=== PATIENT | female | born 1965 | race Caucasian/White ===

== ENCOUNTER 2018-01-22 15:13 | Emergency (ER) | payer OTHER ==
[~2018-01-22] VITALS: Ht 154.9 cm; Wt 76.7 kg
[~2018-01-22 15:13] MED LIST: AMLODIPINE10 MG PO; CLONIDINE0.2 MG PO; DIA5 PO
[2018-01-22 15:16] VITALS: Ht 154.9 cm; Wt 76.7 kg
[2018-01-22 16:43] LABS: BASOPHIL % 0.3 % (0-2); PLATELET COUNT 164 x10^3mcL (130-400)
[2018-01-22 16:59] LABS: ALBUMIN 3.4 g/dL (3.4-5.0); BILIRUBIN TOTAL 1.6 mg/dL (0.20-1.00); CALCIUM 9.3 mg/dL (8.5-10.1); CARBON DIOXIDE 34.4 mmol/L (21-32); POTASSIUM SERUM 3.8 mmol/L (3.5-5.1)
[2018-01-22 17:03] LABS: TOTAL PROTEIN, SERUM 8.5 g/dL (6.4-8.2)
[2018-01-22 17:05] LABS: CREATININE SERUM 5.4 mg/dL (0.6-1.0)
[2018-01-22 20:21] VITALS: BP 158/89
== END 2018-01-22 20:21 | disposition home or self-care (01) ==
LOC: ED 15:13
PROVIDERS: Emergency Medicine
DX: K29.70 Gastritis, unspecified, without bleeding (principal); K80.20 Calculus of gallbladder without cholecystitis without obstruction; E11.22 Type 2 diabetes mellitus with diabetic chronic kidney disease; I12.0 Hypertensive chronic kidney disease with stage 5 chronic kidney disease or end stage renal disease; N18.6 End stage renal disease; R94.5 Abnormal results of liver function studies; Z98.890 Other specified postprocedural states; Z88.1 Allergy status to other antibiotic agents
CPT/HCPCS: 36415; Q0092

== ENCOUNTER 2018-07-04 18:11 | Inpatient (IN) | payer OTHER ==
[~2018-07-04] VITALS: Ht 165.1 cm; Wt 63.1 kg
--- NOTE | 2018-07-04 18:39 | NUR ---
PT BROUGHT TO ED VIA BLS AMBULANCE FROM [facility] C/O RECTAL BLEEDING SINCE LAST NIGHT. PER EMT STAFF AT FACILITY REPORTED PT HAD 50CC BRIGHT RED BLOOD NOTED WHEN CHANGING DIAPER TODAY. PT ARRIVED TO ED A/O X4, ROMANSH SPEAKING, DIAPER IN PLACE FROM FACILITY, DRESSING IN PLACE TO RIGHT ABOVE THE KNEE AMPUTATION, DIALYSIS SHUNT TO LEFT UPPER ARM, NO ACUTE DISTRESS NOTED.
--- NOTE | 2018-07-04 18:57 | NUR ---
PT REPORTS RIGHT ABOVE KNEE AMPUTATION WAS DONE 3-4 WEEKS AGO AT [facility], SHE ALSO REPORTS SHE HAS HAD PRESSURE ULCER TO BUTTOCK SINCE APPROX SAME TIME. PT HAS DRESSING IN PLACE TO BUTTOCK AND APPROX 100CC BRIGHT RED BLOOD WITH CLOTS NOTED TO DIAPER. PT DENIES ANY HX OF RECTAL BLEEDING.
--- NOTE | 2018-07-04 19:07 | NUR ---
REPORT RECEIVED FROM ADELIA GOOD I WILL BE RESUMING CARE PF PT AT THIS TIME
--- NOTE | 2018-07-04 19:08 | NUR ---
PT IN POSITION OF COMFORT RESPS E/U CALL LIGHT WITHIN REACH
--- NOTE | 2018-07-04 19:15 | NUR ---
REPORT GIVEN TO GILLIAN GOOD.
[2018-07-04 19:42] LABS: BASOPHIL % 0.6 % (0-2); PLATELET COUNT 318 x10^3mcL (130-400); RED CELL DISTRIBUTION WIDTH 18.9 % (11.5-14.5)
--- NOTE | 2018-07-04 19:51 | NUR ---
PT NIECE TWIN AKILA [phone] CALLED ASKING FOR INFORMATION ON PT SHE WAS TOLD NO DETAILED INFORMATION CAN BE GIVEN ON THE PHONE AND BECAUSE SHE IS NOT LISTED ON THE NEXT OF KIN UNDER PCI
[2018-07-04 19:57] LABS: BILIRUBIN TOTAL 0.49 mg/dL (0.20-1.00); CARBON DIOXIDE 36.2 mmol/L (21-32); POTASSIUM SERUM 4.4 mmol/L (3.5-5.1); TOTAL PROTEIN, SERUM 7.2 g/dL (6.4-8.2)
[2018-07-04 19:59] LABS: ALBUMIN 2.5 g/dL (3.4-5.0); CREATININE SERUM 4.8 mg/dL (0.6-1.0)
--- NOTE | 2018-07-04 20:19 | NUR ---
SACRAL WOUND PHOTOGRAPH TAKEN AND PLACED IN PT CHART
[2018-07-04] MEDS ORDERED: NOR10T (20:26)
[2018-07-04 21:01] LABS: MAGNESIUM 2.2 mg/dL (1.8-2.4); PHOSPHOROUS 3.9 mg/dL (2.5-4.9)
--- NOTE | 2018-07-04 21:10 | NUR ---
RECEIVED PT FROM ED VIA [facility]ER[facility], CAME IN DUE TO RECTAL BLEED. AAOX4. DENIES HEADACHE/DIZZINESS. NO SOB NOTED, LUNG SOUNDS CTA, O2 SAT-95% ON 3LPM/NC. DENIES CHEST PAIN/PRESSURE, SR ON THE MONITOR. DENIES ABDOMINAL PAIN/NAUSEA/ VOMITING. BOWEL SOUNDS ACTIVE. W/ UNFORMED STOOL, DARK RED IN COLOR. ON HD EVERY MWF, ANURIC, W/ LEFT ARM AV SHUNT, BRUIT AND THRILL. W/ SURGICAL INCISION ON THE RLE, OPEN WOUND ON THE RIGHT ANTERIOR LEG, LEFT HEEL BLANCHABLE ERYTHEMA, DARK DISCOLORATION ON LLE, AND BLANCHABLE ERYTHEMA ON BILATERAL BUTTOCKS. LLE ELEVATED WITH PILLOW, TURNED AND REPOSITIONED ON THE LEFT SIDE. SIDE RAILS UPX2. CALL LIGHT ON REACH. AT BEDSIDE. ENDORSED TO PRIMARY NURSE WAYNE FOR CONTINUITY OF CARE
[2018-07-04 21:21] LABS: T3 TOTAL 0.66 ng/mL
[2018-07-04 21:22] LABS: FREE T4 1.1 ng/dL (0.76-1.46); FREE THYROXINE INDEX 2.4 ug/dL (1.4-4.5); T4(THYROXINE) 5.7 ug/dL (4.7-13.3)
[2018-07-04] MEDS ORDERED: LIPITOR40 MG PO (21:38)
[2018-07-04] MEDS ORDERED: GOOD SENSE ASPI81 M3 PO (21:38)
[2018-07-04] MEDS ORDERED: CATAPRES0.1 MG PO (21:39)
[2018-07-04 21:40] VITALS: BP 146/60
[2018-07-04] MEDS ORDERED: ATIVAN0.5 M1 PO (21:40)
[2018-07-04] MEDS ORDERED: ESCITALOPRAM20 M1 PO (21:40)
[2018-07-04] MEDS ORDERED: DOCUSATE NA250 MG PO (21:40)
[2018-07-04] MEDS ORDERED: NOR10T PO (21:41)
[2018-07-04] MEDS ORDERED: PROTONIX40 MG PO (21:41)
[2018-07-04] MEDS ORDERED: NIFEDIPINE30 MG PO (21:41)
[2018-07-04] MEDS ORDERED: RENVELA800 M1 PO (22:29)
[2018-07-04] MEDS ORDERED: LEVEMIR100 U/M1 SC (22:34)
--- NOTE | 2018-07-04 23:49 | NUR ---
PT REPORTED HAVING ABD PAIN MEDICATED PER EMAR. WILL CONTINUE TO MONITOR.
--- NOTE | 2018-07-04 23:53 | NUR ---
BOWEL PREP STARTED AT THIS TIME.
[2018-07-05] VITALS (8 sets, daily range): BP systolic 75–149; BP diastolic 35–69
--- NOTE | 2018-07-05 00:13 | NUR ---
PT ACTIVLY HAVING BRIGHT RED BLOOD WITH CLOTS. RECEIVED ORDER FOR H/H AT THIS TIME. DR THOMPSON MADE AWARE.
--- NOTE | 2018-07-05 00:27 | NUR ---
DR THOMPSON MADE AWARE OF BP 97/44 (62), HR 62. PROOF READER AT BEDSIDE TO DRAW CBC. PT DENIES DIZZINESS. NO RESP DISTRESS NOTED, PT ON NC 3L/MIN.
--- NOTE | 2018-07-05 00:31 | NUR ---
DR THOMPSON AT BEDSIDE TO ASSESS PT.
--- NOTE | 2018-07-05 00:39 | NUR ---
250 ML NS BOLUS ONGOING ORDERED FRO BP=97/44, MAP=62.
[2018-07-05 00:57] LABS: BASOPHIL % 0.7 % (0-2); PLATELET COUNT 241 x10^3mcL (130-400)
[2018-07-05 01:05] LABS: RED CELL DISTRIBUTION WIDTH 18.4 % (11.5-14.5)
--- NOTE | 2018-07-05 01:11 | NUR ---
DR THOMPSON MADE AWARE OF H&H RESULT 7. AND PT REFUSED TO DRINK SUPREP AT THIS TIME. AWAITING NEW ORDER.
--- NOTE | 2018-07-05 02:00 | NUR ---
PT HAD ANOTHER LARGE BRIGHT RED BLOODY LOOSE STOOL WTIH MANY LARGE CLOTS PRESENT. BP 75/35 HR 66. PT REPORTS FEELING DIZZY AND WEAK. DR THOMPSON MADE AWARE AND AT BEDSIDE TO ASSESS PT. ORDERS TO TRANSFER TO ICU AT THIS TIME.
--- NOTE | 2018-07-05 02:05 | NUR ---
PT ARRIVED TO ICU BED 9 ACCOMPANIED BY WAYNE, RN, MONICA RN. PT PLACED ON FULL IT APPLICATION SUPPORT ANALYST AND PULSE OXIMETRY. PT AOX4 ABLE TO RESPOND TO COMMANDS AND MAKE NEEDS KNOWN, WOLOF SPEAKING WITH KARISSA GOOD TO ASSIST IN TRANSLATION. PUPILS 4MM BRISK RESPONSE TO LIGHT BILATERALLY, PERRLA. NO FACIAL DROOP. TRACEHA MIDLINE, NO DRAINAGE TO EENT, NO EENT COMPLAINTS. LUNG SOUNDS CLEAR TO BUL, DIMINISHED BASES. CHEST RISE/FALL SYMMETRIC, E/U BREATHING. NO ACUTE RESP DISTRESS, DENIES SOB. PT ON 3L NC INTACT. S1/S2 SOUNDS HEARD, CHEST WALL STABLE, NO REPORT OF CHEST PAIN. SKIN COLOR APPEARS BENTLEY/PALE AT THIS TIME. PULSES WEAK TO BUE, LLE, AND PALPABLE, CAP REFILL <3 SEC. RIGHT LOWER EXTREMITY AMPUTATION NOTED WITH SURGICAL INCISION AND DRESSING CDI. NS INFUSING @ 250 ML/HR. NO EDEMA. JOINTS INTACT. SACRAL ULCER NOTED TO BUTTUCKS, OPTIFOAM CDI. PT ON TURN SCHEDULE Q2H. NO S/S OF N/V. ACTIVE BOWEL SOUNDS X4 QUADRANTS, ABD SOFT/ROUND, PT HAS NOTED BLOODY DARK RED STOOL WITH NOTED CLOTS LARGE AMOUNT, PROVIDED PT WITH PERICARE. PT HEMODIALYSIS PATIENT M,W,F AV SHUNT NOTED TO LUE, PT ANURIC. NO LABIAL EDEMA/DISCHARGE NOTED. IV TO RFA 20G, PORT PATENT, NO S/S OF INFILTRATION, DRESSING CDI. SKIN WARM/DRY TO TOUCH. PT CALM/COOPERATIVE WITH CARE.
--- NOTE | 2018-07-05 02:10 | NUR ---
TRANSFERED PT TO ICU, BREATHING EVEN AND UNLABORED WITH NO SOB NOTED ON NC 3L/MIN. REPORT GIVEN TO DEBORA GOOD, ALL QUESTIONS ADDRESSED.
--- NOTE | 2018-07-05 02:15 | NUR ---
LEVOPHED INITIATED AT 2 MCG/MIN, NIBP 67/38 (51).
--- NOTE | 2018-07-05 02:25 | NUR ---
CALLED AND LEFT A MESSAGE TO CRIS MUHAMMAD TO CALL BACK.
--- NOTE | 2018-07-05 02:25 | NUR ---
LEVOPHED INITIATED AT 2 MCG/MIN, NIBP 67/38 (51).
--- NOTE | 2018-07-05 02:30 | NUR ---
LEVOPHED TITRATED TO 4 MCG/MIN, NIBP 59/34 (50).
--- NOTE | 2018-07-05 02:34 | NUR ---
CALLED AND LEFT A MESSAGE TO CRIS MUHAMMAD TO CALL BACK REGARDING PT CHANGE OF CONDITION.
--- NOTE | 2018-07-05 03:00 | NUR ---
MAP=74, LEVOPHED TITRATED TO 2 MCG/MIN.
--- NOTE | 2018-07-05 03:15 | NUR ---
UNIT OF PRBC INITIATED AT THIS TIME, VERIFIED BY 2 RN'S, TEMP 97.1, PULSE 76, NIBP 109/58, RESP 12, PO2 95%. PT INSTRUCTED TO INFORM NURSING STAFF ON S/S OF BLOOD TRANSFUSIONS, PT VERBALIZES UNDERSTANDING.
--- NOTE | 2018-07-05 03:30 | NUR ---
15 MIN POST VITALS: 97.9 TEMP, PULSE 73, NIBP 100/49, RESP 14, O2 97%. PT SHOWS NO S/S OF BLOOD TRANSUFSION REACTION. BLOOD TRANFUSION TITRATED TO HIGHER RATE
--- NOTE | 2018-07-05 03:31 | NUR ---
NS BOLUS 1000ML FINISHED AT THIS TIME. NIBP 100/49 (72).
--- NOTE | 2018-07-05 03:40 | NUR ---
DR. THOMPSON AT BEDSIDE TO ASSESS PT. UPDATES PROVIDED, QUESTIONS ANSWERED.
--- NOTE | 2018-07-05 03:43 | NUR ---
BP 106/51 MAP 75, LEVOPHED TITRATED TO 1 MCG/MIN.
--- NOTE | 2018-07-05 04:00 | NUR ---
LEVOPHED TITRATED OFF AT THIS TIME. MAP=76.
--- NOTE | 2018-07-05 04:52 | NUR ---
CHECKED PT'S PERIAREA, NO SIGNS OF GI BLEED AT THIS TIME. DR. THOMPSON MADE AWARE.
--- NOTE | 2018-07-05 05:37 | NUR ---
2ND UNIT OF PRBC INITIATED AT THIS TIME, VERIFIED BY 2 RN'S, TEMP 98.6, PULSE 68, NIBP 109/61, RESP 12, PO2 100%. PT INSTRUCTED TO INFORM NURSING STAFF ON S/S OF BLOOD TRANSFUSIONS, PT VERBALIZES UNDERSTANDING.
--- NOTE | 2018-07-05 05:45 | NUR ---
INFORMED DR. DEVLIN OF PT'S BLOOD SUGAR OF 70, AND PT'S NPO STATUS AT THIS TIME. PER DR. DEVLIN, OK TO ADMINISTER D50 IVP
--- NOTE | 2018-07-05 05:52 | NUR ---
15 MIN POST VITALS: 98.0 ORAL TEMP, PULSE 72, NIBP 124/57, RESP 12, O2 100%. PT SHOWS NO S/S OF BLOOD TRANSUFSION REACTION. BLOOD TRANFUSION TITRATED
[2018-07-05 05:57] LABS: CALCIUM 8.8 mg/dL (8.5-10.1); CARBON DIOXIDE 33.2 mmol/L (21-32); CREATININE SERUM 4.9 mg/dL (0.6-1.0); POTASSIUM SERUM 5.3 mmol/L (3.5-5.1)
[2018-07-05 05:58] LABS: PLATELET COUNT 228 x10^3mcL (130-400)
--- NOTE | 2018-07-05 06:06 | NUR ---
DR. DEVLIN AT NURSING STATION MADE AWARE OF PT'S MORNING LAB VALUES WBC OF 18.1, H/H OF 8.8/26.6.
[2018-07-05 06:10] LABS: MONOCYTE 2 % (0-7); SEGMENTED NEUTROPHILS 92 % (37-75)
[2018-07-05 06:13] LABS: PLATELET MORPHOLOGY PLATELETS NORMAL; rbc morphology (normal/abnorm) ABNORMAL (NORMAL)
--- NOTE | 2018-07-05 06:26 | NUR ---
DR. DEVLIN AT BEDSIDE FOR ASSESSMENT, SPEAKING WITH PT AND UPDATING ON POC.
--- NOTE | 2018-07-05 07:15 | NUR ---
GAVE REPORT TO FLORENTINO ARREDONDO. UPDATES GIVEN, QUESTIONS ANSWERED.
--- NOTE | 2018-07-05 07:40 | NUR ---
REPORT GIVEN TO GI SEED CONE PICKER CAT, ALL QUESTIONS AND CONCERNS ADDRESSED AT THIS TIME.
--- NOTE | 2018-07-05 07:40 | NUR ---
RECEIVED PT'S REPORT FROM LEAVING NURSE. PT SEEN REST ON BED, REPORT MILD ABD PAIN. RADOMLY BLOOD GLUCOSE CHECK 100 AFTER D50 GIVEN AT AROUND 0600 AM. 2ND UNIT BLOOD TRANSFUSION IS INFUSING. PT BREATHING ON O2 2L VIA NC. EVEN, UNLABORED. R LEG AKA, WITH ISLAND DRESSING ON INCISION SIDE. CDI. NO RECTAL BLEEDING AT THIS TIME. PT IS NPO.
--- NOTE | 2018-07-05 08:15 | NUR ---
2ND UNIT BLOOD TRANSFUSION DONE, PT'S VS: TEMP 98.7, HR 74, BP 123/56, RR 9, O2 SAT 100%. PT REST WELL. NO RECTAL BLEEDING AT THIS TIME.
--- NOTE | 2018-07-05 09:17 | NUR ---
RADOMLY CHECKED PT'S BLOOD GLUCOSE 80.
--- NOTE | 2018-07-05 09:55 | NUR ---
CONSENT OBTAINED AT THIS TIME BY DAUGHTER GAUDENCIO FOR EGD TODAY, COLONOSCOPY TOMORROW.
[2018-07-05 10:35] LABS: BASOPHIL % 0.2 % (0-2); PLATELET COUNT 199 x10^3mcL (130-400); RED CELL DISTRIBUTION WIDTH 17.3 % (11.5-14.5)
--- NOTE | 2018-07-05 11:56 | NUR ---
DR. CISSE SAW PT AT BEDSIDE, PT'S CONDITION IS UPDATED, HD IS ORDERED.
--- NOTE | 2018-07-05 14:00 | NUR ---
PT HAD BM, BLOODY STOOL, BRIGHT RED, ESTIMATED 100ML BLOOD. OPTIFORM CHANGED TO SACRAL AREA. HD NURSE AT BEDSIDE.
--- NOTE | 2018-07-05 14:45 | NUR ---
MADE DR. DEVLIN AWARE PT HAD BM WITH BLOODY STOOL X 2. DR. DEVLIN CONFIRMED TO GIVE PT 3RD UNIT BLOOD WHILE HD.
--- NOTE | 2018-07-05 15:37 | NUR ---
PT IS GOING TO TRANSFER TO [facility]. PT'S REPORT GIVEN TO RECEIVING NURSE ERICH. HD NURSE AT BED SIDE. WILL TRANSFER PT AFTER HD.
--- NOTE | 2018-07-05 16:28 | NUR ---
3RD UNIT BLOOD TRANSFUSION DONE. 100ML ALBUMIN GIVEN WHILE HD TO SUPPORT PT'S BP. PT TOLERATE WELL BY THIS TIME.
--- NOTE | 2018-07-05 17:19 | NUR ---
HD DONE, 1.8L OUT. PT'S BP STABLE AT THIS TIME.
[2018-07-05 18:15] LABS: BASOPHIL % 0.6 % (0-2); PLATELET COUNT 165 x10^3mcL (130-400)
[2018-07-05 18:16] LABS: RED CELL DISTRIBUTION WIDTH 17.6 % (11.5-14.5)
--- NOTE | 2018-07-05 18:49 | NUR ---
ARRIVED FROM ICU AT 1833. AAO TIMES 3. TELE # 34 SR. IV SITE RFA CDI. NO C/O PAIN. ON [facility] AIR BED. PHARMACY CALLED TO BRING UP NEW MOVI PREP, THE OTHER BOTTLE WAS DIRTY IN THE PYXIS.
--- NOTE | 2018-07-05 19:45 | NUR ---
RECEIVED PT IN BED WITH FAMILY AT BEDSIDE. PT IS ORIENTED X2/3. KAZAKH SPEAKING. ABLE TO MAKE NEEDS KNOWN. LUNG SOUNDS DIMINISHED. PT ON 2L O2 VIA N/C. TELE 34 SHOWS NSR. BS ACTIVE IN ALL FOUR QUADS. PT HAVING BLOODY LOOSE STOOL. PT TO HAVE COLOSCOPY IN AM, PT TO HAVE MOVIPREP STARTED. CONSENT HAS BEEN SIGNED BY PT FAMILY MEMEBER AND WITNESS[facility] N[facility] ER[facility]. PT IN ANURIC, LAST HD DONE TODAY. AV SHUNT TO LUE, (+) BRUIT//THRILL. RIGHT AKA, LEFT PEDAL PULSES WEAK AND LLE APPEARS FLACCID. PT ON SPECIALITY BED. SACRAL COCCYX AREA WITH OPEN WOUND, OPTIFOAM DRESSING, CDI.RIGHT AKA WITH ISLAND DRESSING, INTACT. IV TO RFA, HL. SHIFT ASSESSMENT COMPLETED. CALL LIGHT WITHIN REACH. WILL CONTINUE TO MONITOR CLOSELY.
--- NOTE | 2018-07-05 23:30 | NUR ---
PT HAVING DIFFICULTY TIME DRINKING MOVIPREP. PT HAS HAD THREE BLOODY LOOSE STOOLS SINCE START OF SHIFT, WILL CONTINUE TO ENCOURAGE PT TO DRINK MOVIPREP.
[2018-07-06 00:22] VITALS: BP 128/51
--- NOTE | 2018-07-06 00:25 | NUR ---
ALBUMINAR 25 IV HELD AT THIS TIME D/T PT BP IS 128/51. PER WRITTEN ORDER GIVE IF SBP <90. CHARGE NURSE BRIDGET MADE AWARE AND DR.CHERENKOVE HARO GATED AT THIS TIME. ALBUMINAR 25 BOTTLE WAS RETURNED, BUT UNABLE TO FIT IN RETURN BIN, IT IS STORED IN PT CASSETTE IN MED ROOM WITH RETURN SLIP ATTACHED FOR PHARMACY TO GLASS BELT SANDER.
--- NOTE | 2018-07-06 03:45 | NUR ---
PT COMPLETED 1 OF 2 BOTTLES OF MOVIPREP. MULTIPLE LOOSE STOOL, PT IS NOT CLEAR AT THIS TIME.
[2018-07-06 05:41] VITALS: BP 149/58
--- NOTE | 2018-07-06 06:33 | NUR ---
SPOKE WITH DR. SAHA AT THIS TIME TO INFORM HIM PT IS NOT CLEAR, LAST BM LOOSE WITH SOME FOOD PARTICLES. PT CONTINUING TO DRINK MOVIPREP. WILL ENDORSE TO INCOMING SHIFT.
[2018-07-06 06:58] LABS: CALCIUM 9.4 mg/dL (8.5-10.1); CARBON DIOXIDE 27.9 mmol/L (21-32); CREATININE SERUM 3.4 mg/dL (0.6-1.0); MAGNESIUM 2.1 mg/dL (1.8-2.4); POTASSIUM SERUM 3.3 mmol/L (3.5-5.1)
--- NOTE | 2018-07-06 07:30 | NUR ---
AAO TO PERSON AND PLACE. TELE # 34 SR. LUNGS CTA BUL, DIMINISHED BASES. O2 SAT ON RA 98% BS'S ACTIVE TIMES 4. ON AIR MATTRESS. DRESSING TO COCCYX AND RAKA CDI. ON HILL ROM AIR BED. IV SITE CDI. COOPERATIVE. DRINKING BOWEL PREP MOVIPREP WITHOUT DIFFICULTY, SHE CANT USE A STRAW, BUT DRINKS WELLL WITH A CUP. PERIPHERAL PULSES PALPABLE. NO EDEMA.
[2018-07-06 07:36] LABS: BASOPHIL % 1.3 % (0-2); PLATELET COUNT 194 x10^3mcL (130-400); RED CELL DISTRIBUTION WIDTH 17.7 % (11.5-14.5)
[2018-07-06 09:18] VITALS: BP 145/57
--- NOTE | 2018-07-06 10:41 | NUR ---
PT. NOT AVAILABLE AT THIS TIME, OFF FLOOR FOR PROCEDURE PER CHARGE NURSE.
[2018-07-06 13:35] VITALS: BP 140/69
--- NOTE | 2018-07-06 13:44 | NUR ---
Initial Nutrition Assessment- 253T/B CHRISTINA MUELLER HR Dx: GI Bleed PMHx: ESRD on HD MWF, DM, HLD, GERD, HTN PSHx: Right Above Knee Amputation Labs: K 3.3L, CREAT 3.4H, A1C 5.1 (WNL) Meds: D50, humulin, Lipitor, miralax, reglan, senokot, zofran Diet: Renal (07/06-lunch); NPO (since admission), PO Intake: NPO since admission Ht:165.1 cm (65") Wt: 63.1 kg (139#) BMI: 23.1 kg/m2 IBW: 125# (57 kg) %IBW: 111 UBW: Unable to access Age: 52/F Food Allergies: tuna oil Skin: Sacral wound Sacha: 16 Edema: none GI: last BM: 07/05 Per H&P, Patient is a 52 year old female with PMH of ESRD on HD MWF, DM, HLD, GERD and HTN was brought in by ambulance from [facility] for rectal bleed. While the nursing staff was changing the patient's diaper, they noticed about 50 cc of bright red blood. Patient states she never had this before. Patient reports having 3-4 days of diarrhea but no blood with that until today. Patient reports getting a right knee AKA a month ago at [facility] where she was treated with antibiotic. FNS received wound care consult on 07/05. RDN visit(07/06): pt was not in the room d/t colonoscopy procedure. Per FLORENTINO Russell, pt was NPO since admission. Per progress note 07/05, pt was transferred to ICU on 07/04 due to GI bleed and low Hgb H/H 10.6->7.3. Pt received 2nd unit of blood transfusion yesterday. Pt recently received Renal diet order. Problem with: N/V/D/C: unable to access Problems with: Chewing/Swallowing: none Current appetite: unable to access Recent wt change: unable to access Vitamin/Supplement use: unable to access Special diet at home: unable to access Physical activity: unable to access Education: Pt was not in the room d/t colonoscopy procedure. Renal diet education will be provided during a F/U visit. Estimated Nutritional Needs Based on actual body weight 63 kg Energy: 3174-7054 kcal/d (30-35 kcal/kg- HD/wound) Protein: 75-94 g/d (1.2-1.5g/kg)- pt on HD Fluid: per MD Nutrition Diagnosis 1. Increased nutrient needs related to metabolic demands as evidenced by pt on HD. 2. Inadequate oral intake related to GI bleed as evidenced by pt being kept NPO since admission until today morning. Intervention 1. Recommend continuing Renal diet. Monitor/Evaluate Goal: PO intake at least 75% of estimated needs Monitor: PO intake, Labs, GI function F/U in 3-5 days as moderate risk 07/09-07/11
--- NOTE | 2018-07-06 13:44 | NUR ---
1. Recommend continuing Renal diet.
--- NOTE | 2018-07-06 14:28 | NUR ---
WOUND CARE EVALUATION NOTE: REASON FOR EVALUATION: LEG AND SACRALCOCCYX WOUNDS SKIN ASSESSMENT DONE WITH THIS 52 Y/O FEMALE PT ADMITTED FROM SNF TO [facility] WITH INITIAL DX OF RECTAL BLEEDING. PAST MEDICAL HX INCLUDES DM, HTN, HLD. CKD WITH HD, RIGHT AKA AND PRESSURE ULCER UNSTAGEABLE TO SACRALCOCCYX, ALL ABOVE INFORMATION OBTAINED FROM ADMISSION H&P. SKIN IS WARM AND DRY, LLE NO HAIR GROWTH, NO EDEMA, RIGHT AKA. PLAN OF CARE DISCUSSED WITH MURALI BLANC NP. INTEGUMENTARY: -BLANCHABLE REDNESS TO LEFT HEEL -PRESSURE INJURY UN-STAGEABLE TO SACRALCOCCYX, [id number] WITH UNDERMINING BETWEEN 11-6 O'CLOCK, WITH DEEPEST 3 CM TO 5 O'CLOCK DIRECTION. WOUND BED 80% GRANULATION TISSUE AND 20% SCATTERED YELLOW SLOUGH, MODERATE AMOUNT SERODRAINAGE, PER-WOUND SKIN INTACT, NO ODOR, PAIN 04/11 -RIGHT AKA STUMP SURGICAL WOUND 0.5X15X0.3CM WOUND BED IS PINK, MOIST NO ODOR, NO PAIN, NICOLE WOUND TO LEE 10 O'CLOCK DIRECTION A BROWN SCAB UNKNOW ETIOLOGY WITH 1.5X1.5CM, DRY, NO ODOR. RECOMMENDATIONS: -KEEP SKIN DRY AND CLEAN AT ALL TIMES, PLEASE CHECK Q2H AND PRN FOR INCONTINENCY OF BOWEL AND BLADDER. -CLEANSE RIGHT STUMP WOUND WITH WOUND CARE SOLUTION, PAT DRY, APPLY ADAPTIC DRESSING AND COVER WITH DRY DRESSING QM-W-F AND PRN IF SOILING -CLEANSE SACRALCOCCYX WOUND WITH WOUND CARE SOLUTION, PAT DRY, APPLY THERAHONEY GEL AND COVER WITH DRY DRESSING QD AND PRN IF SOILING -APPLY HEEL RAISER TO LEFT HEEL AT ALL TIMES -OFFLOAD LEFT HEEL BY PLACING PILLOWS UNDER CALVES UNLESS OTHERWISE CONTRAINDICATED -PRESSURE REDISTUBUTION SURFACE THERAPY -TURN AND REPOSITION Q2H, OFFLOAD SACRALCOCCYX BY TURNING RIGHT AND LEFT -CONTINUE TO FOLLOW RD RECOMMENDATIONS WILL FOLLOW UP PT Q7-10 DAYS. PLEASE CONTACT WOUND CARE NURSE FOR ANY QUESTION AND CHANGE OF WOUND CONDITION.
--- NOTE | 2018-07-06 15:30 | NUR ---
RECIEVED CRITICAL BY MICRO AT 1517 FOR THIS PATIENT. HER WOUND CULTURE FROM HER SACRAL WOUND SHOWS E. COLI WITH MDRO. I CALLED MURALI TORRES AT 1525, SHE IS ORDERING LEVOFLOXACIN IVPB. CHARGE NURSE JERED SIMEON AWARE, THE PATIENTS ROOM IS NOW CONTACT ISOLATION AND MARKED BY SIGN AND ISOLATION BOX ON THE DOOR.
[2018-07-06 17:05] VITALS: BP 147/65
--- NOTE | 2018-07-06 18:38 | NUR ---
ON [facility] AIR MATTRESS. TELE DC'D, MED SURG PATIENT. NO SOB. VS'S STABLE. NO C/O PAIN. IV SITE RO RFA CDI. CONTACT ISOLATION FOR E. COLI AND MDRO FROM SACRAL WOUND. SHE WILL GET HD TOMORROW. ANURIC. AV SHUNT TO LUE. TURNING Q 2 HOURS.
--- NOTE | 2018-07-06 20:00 | NUR ---
RECEIVED PT IN BED,RESTING QUIETLY , A/O X3, ABLE TO VERBALIZE NEEDS. DENIES HEADACHE/DIZZINESS. [address], REILLY. WELL. DENIES SOB. NO ACUTE DISTRESS NOTED. ON AIR MATTRESS WITH HILL ROMBED, SACRAL/COCCYX DRESSING DRY AND INTACT. RT AKA STUMP DRESSING DRY AND INTACT. AV SHUNT TO LUE, WITH GOOD BRUIT/THRILL. HEMODIALYSIS PT. HL TO RFA, INTACT AND PATENT. HS CARE DONE,TURN ED AND REPOSITIONED FOR COMFORT. NO COMPLAINTS NOTED AT THIS TIME. CALL LIGHT WITHIN REACH. ON CONTACT ISOLATION. WILL MAINTAIN PRECAUTIONS. WILL CONTINUE TO MONITOR.
[2018-07-06 20:48] VITALS: BP 135/64
--- NOTE | 2018-07-07 01:04 | NUR ---
EYES CLOSED, RESTING QUIETLY , APPEARS ASLEEP, EASILY AROUSABLE. REEP. EVEN AND UNLABORED. [address] NO ACUTE DISTRESS NOTED. TURNED AND REPOSITIONED Q2HRS AND PRN. WILL CONTINUE TO MONITOR.
[2018-07-07 05:23] VITALS: BP 159/62
--- NOTE | 2018-07-07 06:22 | NUR ---
TURNED AND REPOSITIONED Q2HRS AND PRN. RESP. EVEN AND UNLABORED. 02 AT 2L/MIN VIA NC, REILLY. WELL. NO ACUTE DISTRESS NOTED. AFEBRILE AND VITAL SIGNS STABLE. DUE MEDS GIVEN ORDERED. REILLY. WELL. DENIES PAIN OR ANY DISCOMFORT. CONTACT ISOLATION PREC. MAINTAINED. KEPT COMFORTABLE AND ALL NEEDS ATTENDED TO. WILL CONTINUE TO MONITOR.
[2018-07-07 06:28] LABS: CALCIUM 9.6 mg/dL (8.5-10.1); CARBON DIOXIDE 27.6 mmol/L (21-32); POTASSIUM SERUM 4.7 mmol/L (3.5-5.1)
[2018-07-07 06:39] LABS: CREATININE SERUM 4.7 mg/dL (0.6-1.0)
--- NOTE | 2018-07-07 07:56 | NUR ---
AWAKE AND ALERT. IN NO ACUTE DISTRESS. NO C/O PAIN OR DISCOMFORT. CALL LIGHT WITHIN REACH. WILL CONTINUE WITH PLAN OF CARE.
[2018-07-07 08:39] VITALS: BP 151/59
[2018-07-07 11:05] LABS: RED CELL DISTRIBUTION WIDTH 17.9 % (11.5-14.5)
[2018-07-07 11:06] LABS: PLATELET COUNT 154 x10^3mcL (130-400)
--- NOTE | 2018-07-07 11:21 | NUR ---
HEMODIALYSIS STARTED BY DIALYSIS NURSE. IN PROGRESS NOW. PT IN NO DISTRESS.
[2018-07-07] MEDS ORDERED: LEV250PM IV (12:59)
--- NOTE | 2018-07-07 13:29 | NUR ---
HEMODIALYSIS IN PROGRESS, PT TOLERATING WELL. NO DISTRESS. NO CHANGES IN VS.
--- NOTE | 2018-07-07 15:35 | NUR ---
HEMODIALYSIS COMPLETED, PT TOLERATED WELL 2.2 LITERS OUT. PT CLEANED AND WOUND TO SACRAL AREA CLEANED WITH WOUND CLEANSER AND THERAHONEY APPLIED COVERED WITH DRY DRESSING. PT TOLERATED WELL. REFUSED WOUND CARE TO RT STUMP. DRESSING OVER RT AKA STUMP APPEARS D/C/I. REPOSITIONED IN BED FOR COMFORT. CALL LIGHT WITHIN REACH.
--- NOTE | 2018-07-07 16:32 | NUR ---
PT WILL BE TRANSFERED TO [facility] THIS PM. REPORT GIVEN TTO MS. SAGE
--- NOTE | 2018-07-07 16:35 | NUR ---
CALLED TWIN, PT'S NIECE AND NOTIFY HER OF PT DC'D BACK TO [facility].
[2018-07-07 16:44] VITALS: BP 119/31
--- NOTE | 2018-07-07 17:10 | NUR ---
C/O PAIN TO RLE, 11/09. MEDICATED PER ORDER.
[2018-07-07 17:16] VITALS: BP 151/59
--- NOTE | 2018-07-07 18:38 | NUR ---
PT LEFT TO [facility] IN NO ACUTE DISTRESS. AWAKE AND ALERT. VS STABLE. NO C/O PAIN OR DISCOMFORT. HL PATENT. PERSONAL BELONGINGS SENT WITH PT.
[2018-07-08 11:29] VITALS: Ht 165.1 cm; Wt 63.1 kg
== END 2018-07-07 18:43 | DRG 254 ==
LOC: ED 18:11 → DU 20:17 → IC 20:17 → DU 21:13 → IC 07-05 02:05 → DU 07-05 18:33 → MU 07-06 15:45
PROVIDERS: Family Medicine; Internal Medicine Gastroenterology; Specialist; ADMIT Internal Medicine
PROC: 30233N1 Transfusion of Nonautologous Red Blood Cells into Peripheral Vein, Percutaneous Approach (ICD-10-PCS; 2018-07-05)
PROC: 5A1D70Z Performance of Urinary Filtration, Intermittent, Less than 6 Hours Per Day (ICD-10-PCS; 2018-07-05)
PROC: 0DJ08ZZ Inspection of Upper Intestinal Tract, Via Natural or Artificial Opening Endoscopic (ICD-10-PCS; principal; 2018-07-05 10:00)
PROC: 0DBF8ZZ Excision of Right Large Intestine, Via Natural or Artificial Opening Endoscopic (ICD-10-PCS; 2018-07-06 09:00)
PROC: 0DBP8ZZ Excision of Rectum, Via Natural or Artificial Opening Endoscopic (ICD-10-PCS; 2018-07-06 09:00)
DX: K62.6 Ulcer of anus and rectum (principal); R57.8 Other shock; E43 Unspecified severe protein-calorie malnutrition; L89.153 Pressure ulcer of sacral region, stage 3; E11.22 Type 2 diabetes mellitus with diabetic chronic kidney disease; D62 Acute posthemorrhagic anemia; E11.51 Type 2 diabetes mellitus with diabetic peripheral angiopathy without gangrene; E87.5 Hyperkalemia; I12.0 Hypertensive chronic kidney disease with stage 5 chronic kidney disease or end stage renal disease; N18.6 End stage renal disease; E02 Subclinical iodine-deficiency hypothyroidism; K63.5 Polyp of colon; E78.5 Hyperlipidemia, unspecified; D64.9 Anemia, unspecified; K21.9 Gastro-esophageal reflux disease without esophagitis; K56.41 Fecal impaction; F41.9 Anxiety disorder, unspecified; Z99.2 Dependence on renal dialysis; Z89.611 Acquired absence of right leg above knee; Z79.84 Long term (current) use of oral hypoglycemic drugs; Z88.0 Allergy status to penicillin; Z88.1 Allergy status to other antibiotic agents; Z88.8 Allergy status to other drugs, medicaments and biological substances; Z68.27 Body mass index [BMI] 27.0-27.9, adult
CPT/HCPCS: 43235; 45378; 82962; 84439; 87046; 87046-59; A4719; J1200; J1610; J1956; J2250; J2310; J3010; J3490; J7030; J7050; J8597; P9016; P9047; Q0163

== ENCOUNTER 2018-07-10 04:47 | Inpatient (IN) | payer OTHER ==
[~2018-07-10] VITALS: Ht 157.5 cm; Wt 59.2 kg
[~2018-07-10 04:47] MED LIST changes: +ATIVAN0.5 M1 PO; +CATAPRES0.1 MG PO; +DOCUSATE NA250 MG PO; +ESCITALOPRAM20 M1 PO; +GOOD SENSE ASPI81 M3 PO; +LEV250PM IV; +LEVEMIR100 U/M1 SC; +LIPITOR40 MG PO; +NIFEDIPINE30 MG PO; +NOR10T; +NOR10T PO; +PROTONIX40 MG PO; +RENVELA800 M1 PO
[2018-07-10 04:57] VITALS: Ht 157.5 cm; Wt 59.2 kg
--- NOTE | 2018-07-10 05:01 | NUR ---
PT BIB AMBULANCE FOR 1 EPISODE OF BLOODY DIAHHREA. PER PARAMEDICS FACILITY TOLD THEM THAT SHE CAME HOME FROM [place], WHEN SHE WAS TAKEN OVER A "BUMP" WHICH TIGGERED THE DIAHHREA. PT ALSO HAD RIGHT LEG AMPUTATION ABOUT 1 MONTH AGO. PT IS A/O X4. PT CURRENTLY DENIES ANY PAIN OR DISCOMFORT. NO S/S OF DISTRESS. RESP E/U. AWAITING MSE. PT ALSO HAS 20G IV IN RIGHT FOREARM. COMFORT MEASURES IMPLEMENTED. CALL LIGHT W/IN REACH. WILL CONTINUE TO MONITOR.
--- NOTE | 2018-07-10 05:19 | NUR ---
XRAY AT BEDSIDE.
[2018-07-10 05:47] LABS: BASOPHIL % 0.4 % (0-2); PLATELET COUNT 251 x10^3mcL (130-400); RED CELL DISTRIBUTION WIDTH 18.1 % (11.5-14.5)
[2018-07-10 06:08] LABS: BILIRUBIN TOTAL 0.8 mg/dL (0.20-1.00); CALCIUM 9.3 mg/dL (8.5-10.1); CREATININE SERUM 2.9 mg/dL (0.6-1.0); TOTAL PROTEIN, SERUM 6.9 g/dL (6.4-8.2)
[2018-07-10 06:09] LABS: ALBUMIN 2.5 g/dL (3.4-5.0)
[2018-07-10 06:10] LABS: POTASSIUM SERUM 2.9 mmol/L (3.5-5.1)
--- NOTE | 2018-07-10 06:29 | NUR ---
SPOKE WITH NGUYỄN ABOUT TRANSPORT BACK TO FACILITY. PER NGUYỄN [facility] SHOULD SET UP TRANSPORT SERVICES.
--- NOTE | 2018-07-10 07:02 | NUR ---
PT EXPERIENCED 3 EPISODES OF BLOODY DIAHHREA IN THE LAST 45 MINUTES. PT WAS CHANGED IN TIME. BLOOD IS DARK RED.
--- NOTE | 2018-07-10 07:28 | NUR ---
REPORT GIVEN TO FLORENTINO OVALLE TO ASSUME CARE.
--- NOTE | 2018-07-10 08:02 | NUR ---
RECEIVED PT FROM ER. ADMISSION HISTORY AND ASSESSMENT IS DONE AND WILL DOCUMENT. DENIES ANY PAIN THIS TIME. PT IS HAVING RECTAL BLEED, NO STOOL SEEN BUT BLOOD WOTH CLOT AND SOME CORNS, INFORMED ABOUT THAT AND ALSO INFORMED PT HAS LARGE PRESSURE ULCER IN THE SACARLA AREA AND POST OP WOUND ON THE RT LEG(AKA). IONFORMED ABOUT PHOS=2. PT IS ESRD WITH HD SO SHE SAID SHE WILL NOT ORDER REPLACEMENT. SAFTEY PRECAUTIONS ARE IN PLACE. WILL MONITOR.
--- NOTE | 2018-07-10 08:03 | NUR ---
PUT PT ON AIRMATRESS. AWARE ABOUT CHEST XRAY RESULT, BNP AND TROP RESULT. NO NEW ORDER RECEIVED.
[2018-07-10 08:39] LABS: BASOPHIL % 0.5 % (0-2); PLATELET COUNT 219 x10^3mcL (130-400)
[2018-07-10 08:41] LABS: RED CELL DISTRIBUTION WIDTH 18.2 % (11.5-14.5)
--- NOTE | 2018-07-10 09:00 | NUR ---
PT HAD LARGE AMOUNT OF RECTAL BLEEDING WITH CLOT X2 ALREADY, INFORMED .
[2018-07-10 09:02] LABS: MAGNESIUM 1.8 mg/dL (1.8-2.4)
[2018-07-10 09:09] LABS: CHOLESTEROL/HDL RATIO 2.2
--- NOTE | 2018-07-10 09:41 | NUR ---
INFORMED ABOUT PT'S RHYTHM SR WITH OCC PVC'S. DENIES CHEST PAIN. NO NEW ORDER RECEIVED. PUT PT ON CONTACT ISO FOR HX OF MDRO OF WOUND.
--- NOTE | 2018-07-10 11:30 | NUR ---
CHECKED PT, NO RECTAL BLEED THIS TIME. WILL CHECK MORE OFTEN TO COLLECT STOOL OB SAMPLE. DR.RANOLA LARRY.
[2018-07-10 11:57] VITALS: BP 114/56
[2018-07-10 12:31] VITALS: BP 113/45
[2018-07-10 13:35] LABS: BASOPHIL % 0.4 % (0-2); PLATELET COUNT 197 x10^3mcL (130-400)
[2018-07-10 13:39] LABS: RED CELL DISTRIBUTION WIDTH 18.4 % (11.5-14.5)
--- NOTE | 2018-07-10 13:45 | NUR ---
INFORMED ABOUT H/H=.09/18. SHE SAID SHE WILL ORDER BLOOD TRANSFUSION.
[2018-07-10 13:57] LABS: rbc morphology (normal/abnorm) ABNORMAL (NORMAL)
--- NOTE | 2018-07-10 14:00 | NUR ---
INFORMED ABOUT TROP 1.225, NO NEW ORDER RECEIVED THIS TIME.
--- NOTE | 2018-07-10 16:00 | NUR ---
,SPORTS EQUIPMENT SUPERVISOR SEEN THE PT AWARE ABOUT TROP AND INFORMED HIM PT HAD SR WITH OCC PVC BUT NOW SR, ALSO HE IS AWARE ABOUT ALL LAB VALUE.
--- NOTE | 2018-07-10 16:30 | NUR ---
H/H=7.8/, CHARGE NURSE AWARE AND INFORMED . SHE SAID STILL GIVE 2U BLOOD.
[2018-07-10 16:37] VITALS: BP 121/49
--- NOTE | 2018-07-10 19:00 | NUR ---
PT RESTING IN BED COMFORTABLY, DENIES ANY PAIN. BLOOD IS STILL NOT READY. CALLED BLOOD BANK, THEY SAID WILL BE READY SOON. GAVE REPORT TO PEDIATRIC ASSOCIATE NURSE.
--- NOTE | 2018-07-10 19:25 | NUR ---
RECEIVED PT IN BED AWAKE, ALERT,ORIENTED X4. LUNGS CTA. NO SOB ON ROOM AIR. BOWEL SOUNDS ACTIVE . SHE HAS NO C.O PAIN AT THIS TIME. W/ RT AKA. STUMP W/ DRESSING INTACT. WOUND TO COCCYX W/ DRESSING CDI. IVF INFUSING VIA RTFA. PT ON AIR MATTRESS. CALL LIGHT W/ION REACH. PT ON CONTACT ISOLATION.
--- NOTE | 2018-07-10 19:50 | NUR ---
PT C/O PAIN TO IV SITE ON RTFA. IV REMOVED. STARTED NEW IV ON THE RT HAND G 22.
[2018-07-10 20:10] VITALS: BP 118/73
--- NOTE | 2018-07-10 20:15 | NUR ---
FIRST UNIT OF PRBC STARTED ORDERED.
[2018-07-10 20:30] VITALS: BP 106/50
--- NOTE | 2018-07-10 20:30 | NUR ---
NO TRANSFUSION REACTION NOTED AFTER 15 MINS OF BLOOD TRANSFUSION. V/S TAKEN AND RECORDED.
[2018-07-10 20:39] VITALS: BP 118/73
--- NOTE | 2018-07-10 23:26 | NUR ---
INFORMED DR. HERMAN REGARDING LATEST TROPONIN OF 0.972 (PREVIOUS=1.225).
[2018-07-11] VITALS (10 sets, daily range): BP systolic 80–138; BP diastolic 30–54
--- NOTE | 2018-07-11 00:15 | NUR ---
FIRST UNIT OF PRBC DONE. NO TRANSFUSION REACTION NOTED.
--- NOTE | 2018-07-11 00:45 | NUR ---
SECOND UNIT OF PRBC STARTED.
--- NOTE | 2018-07-11 01:04 | NUR ---
NO TRANS FUSION REACTION NOTED AFTER 15 MINS OF TRANSFUSION. PT SLEEPING AND EASILY AROUSABLE. NO C/O DISCOMFORT.
--- NOTE | 2018-07-11 03:45 | NUR ---
SECOND UNIT OF PRBC COMPLETED. NO ADVERSE REACTION NOTED.
--- NOTE | 2018-07-11 03:50 | NUR ---
BP 99/[address] HERMAN INFORMED . PER DOCTOR DO NOT GIVE LASIX DUE TO LOW BP.
--- NOTE | 2018-07-11 05:22 | NUR ---
PT SLEPT AT LONG INTERVALS. SHE REMAINS ALERT AND ORIENTED X4. SHE HAD NO C/O PAIN. PT WAS GIVEN 2 UNITS OF PRBC THIS SHIFT. NO TRANSFUSION REACTION OCCURRED. PT HAD SEVERAL EPISODES OF BLOODY BM. ALL NEEDS ATTENDED TO. CONTACT ISOLATION MAINTAINED.
[2018-07-11 06:30] LABS: BASOPHIL % 0.4 % (0-2); PLATELET COUNT 151 x10^3mcL (130-400)
--- NOTE | 2018-07-11 06:54 | NUR ---
INFORMED DR. DEVLIN REGARDING LATEST BP OF 106/43. ALSO INFORMED THAT PT HAD 8 X BLOODY BM.
[2018-07-11 07:35] LABS: CALCIUM 7.9 mg/dL (8.5-10.1); CARBON DIOXIDE 29.4 mmol/L (21-32); CREATININE SERUM 3.7 mg/dL (0.6-1.0); MAGNESIUM 1.7 mg/dL (1.8-2.4); PHOSPHOROUS 2.6 mg/dL (2.5-4.9); POTASSIUM SERUM 3.7 mmol/L (3.5-5.1)
--- NOTE | 2018-07-11 08:00 | NUR ---
RECEIVED PATIENT ALERT AND ORIENTED AND SPAINISH SPEAKING ONLY VYER WEAK AT THIS TIME AND SKIN PALOR IS GRAYISH IN APPEARANCE. PATIENT HAS BEE ABLE TO MOVE BUT SLOWLY AND WITH SOME RESISTANCE DUE TO DISCOLFORT AND WEAKNESS. APTIENT AHS CLEAR BUT DIMINIHSED BREATHS OUNDS AND BOWEL SUONDS ACTIVE. PATIENT HAS A DRESSING TO THE COCCYX AND THE STUMP OF THE RIGHT LEG. THE STUNP WITH SOME MINOR DRAINAGE AND NO ACUTE ACTIVE BLEEDING AT THIS TIME. REPORTED THE PATIENT HAD BLEEDING WITH EACH STOOL AND THE SHALLOT CLEANER WANTS HER CLEANED OUT DUE TO FECAL RETENTION AND CAUSING ERROUSION PER REPORT. PATIENT HAS COMPLAINED OF PAIN TO THE LEG AND TO THE HEAD. PATIENT HAS BEE ON BEDRES AND IN ISOLATION FOR MDRO OF THE WOUND. PATIENT HAS BEEN ON A AIR MATTRESS AND ENCOURAGE DIET AND FLUIDS PER RESTRICTION INTAKE. VITALS AT THIS TIME NOTED TO HAVE LOW BP AND THE LASIX, AND ALL BP MEDICATIONS HELD AT THIS TIME FOR 78/43. PATIENT HAS PAIN TO THE HEAD AND LEGS AND WILL GIVE NORCO. VITALS AT THIS TIME AT 98.4, 20, 99%ON ROOM AIR. LABS OR AT MAG AT 1.7, CA AT 7.9, AND THE H AHD OF TODAY IS AT 8.2/26. WILL CONTINUE TO MONITOR INDICATED.
--- NOTE | 2018-07-11 09:38 | NUR ---
CALLED PHARMACY TO SENT UP THE FERRICET IV ORDERED. WAS NOT AVAILABLE IN THE MEDICATION ROOM. THEY WILL SEND. PATIENT GIVEN NORCO FOR PAIN AT THIS TIME. SHE COMPLAINTS OF PAIN TO THE HEAD AND THE LOWE EXTREMITES. WILL MONITOR FOR EFFECTIVENESS.
--- NOTE | 2018-07-11 11:38 | NUR ---
SEEN BY DR IRAJ SAHA AND PLAN IS FOR SIGMOIDOSCOPY TODAY. CONSENT SIGNED AND CHECKLIST COMPLETED. CALLED THE RESIDENT WTIH THE BP OF 80/34 AND SHE DID OT WANT A BOLUS. THE PATIENT IS ON 50CC PER HOUR OF FLUIDS AT THIS TIME AND RECEIVING IRON IVPB WELL. SHE HAD JUST COMPLETED THE ECHO. PATIENT HAS NO UNITS OF BLOOD ON HOLD BUT HAS HAD TYPE AND SCREEN. PATEINT HAS RECIEVED SOME OF HER MORNING MEDICATION AND MEAL AND WILL BE NPO FOR NOW. NOTED ADOLPH BLOOD COMING FROM THE RECTUM ON HIS BEDDING CHANGE AND THE PATIENT HAS NO CLOTS AND THE AMOUNT SOILED THE BEDDING AND HER GOWN. NOTED THE LAST H AND H OF 8.224. AWAITING CALL FOR PROCEDURE. PATIENT NOW NPO INDICATED. LAST BP AT 110/40 AND ADVISED THE CHARGE OF THIS. PATIENTS BP MEDICATIONA ND LASIX HELD INDICATED EARLIER.
--- NOTE | 2018-07-11 13:00 | NUR ---
PATIENT ARRIVED ON ICU ACCOMPANIED BY BIRGIT GOOD AND ERIN GOOD. PATIENT PLACED IN ICU#1 FOR G.I. PROCEDURE. BIRGIT GOOD GAVE REPORT TO ED GOOD. PATIENT PLACE ON ICU CONTINUOUS CARDIAC MONITORING. VITALS BP 138/59, HR 83 RR 22, SPO2 100% ON 2 L N/C.
--- NOTE | 2018-07-11 13:05 | NUR ---
DR SAHA, ED RN AND DOT COMPLIANCE MANAGER AT BEDSIDE FOR G.I. PROCEDURE.
--- NOTE | 2018-07-11 13:53 | NUR ---
TOOK DOWN TO ICU FOR SIGMOIDOSCOPY. PATIENT HAS SIGNED CONSENT AND CHECKLIST COMPLETED. PATEINT HAS HAD RECTAL BLEEDING. WILL AWAITING ARRIVAL BACK TO THE FLOOR AND FINDINGS INDICATED.
--- NOTE | 2018-07-11 14:00 | NUR ---
G.I. PROCEDURE COMPLETED. VITALS REMAIN STABLE. BP 101/60 (MAP 77), HR 76, RR 9, SPO2 98% ON 2 L N/C.
--- NOTE | 2018-07-11 14:25 | NUR ---
RECEIVED POST PROCEDURE. DR SAHA PLACED THREE CLIPS AND CAUTERIZED AREA OF BLEEDING AND PATIENT HAS ULCER TO ETH COLON. . PATIENT VITALS ARE STABLE BUT THE 02 IS SENSITIVE AND PATIENT IS ON 02 VIA NASAL CANNULA SHE HAS DESATED IN ICU. NOW AT 94 PERCENT AND BP AT 106/44, 66 PULSE. PATIENT IS TO HAVE FULL LIQUID DIET. WILL CONTINUE TO MONITOR INDICATED.
--- NOTE | 2018-07-11 16:24 | NUR ---
HAD RECTAL OUTPUT AND THIS TIME MORE OF SEROUS SANG THAN ADOLPH BLOOD NOTED. SHE HAS SOME CLOTS WELL. SHE WAS CLEANSED AND A NEW DRESSING APPLIED TO THE SACRAL SITE WITH PACKING AND THERAHONEY. SHE TOELRATED WELL. OFFERED HER SOMETHING OT DRINK AND PUDDING IT IS SOFT AND SEEN HOW SHE TOLERATES. SHE IS FOR [facility] DIET FOR DINNER. STUMP DRESSING REMAINS INPLACE. PULLED HER UP IN BED AND SHE IS RESTING QUIETLY AT THIS TIME .
--- NOTE | 2018-07-11 19:35 | NUR ---
RECEIVED PT IN BED AWAKE AND RESTING QUIETLY. SHE IS ALERT,ORIENTED X4. NO SOB ON ROOM AIR. W/ ACTIVE BOWEL SOUNDS. PT W/ NO BLEEDING NOTED AT THIS TIME. DRESSING TO COCCYX AND RT AKA STUMP CDI. W/ HL TO RT HAND INTACT. CALL LIGHT W/IN REACH. PT ON CONTACT ISOLATION.
--- NOTE | 2018-07-11 19:41 | NUR ---
FAMILY ARRIVED AT BEDSIDE AND SUPPORTIVE WITH CARE. PATIENT OVERALL IS TIRED BUT COLOR IS BETTER. NO FURTHER RECTAL OUTPUT AT THIS TIME. PATIETN ENDORSED TO THE NEXT SHIFT.
[2018-07-11 20:20] LABS: BASOPHIL % 0.1 % (0-2); PLATELET COUNT 187 x10^3mcL (130-400); RED CELL DISTRIBUTION WIDTH 17.2 % (11.5-14.5)
--- NOTE | 2018-07-11 20:33 | NUR ---
PT C/O BILAT LEG PAIN 10/09. NORCO 7.5/325 MG PO GIVEN.
--- NOTE | 2018-07-11 20:45 | NUR ---
INFORMED DR. HERMAN REGARDING WBC OF 14.0 AND H/H OF 7.0/21 .
--- NOTE | 2018-07-11 22:40 | NUR ---
I UNIT PRBC STARTED ORDERED.
--- NOTE | 2018-07-11 22:55 | NUR ---
NO ADVERSE REACTION NOTED AFTER 15 MINS OF TRANSFUSION. PT'S FAMILY AT BEDSIDE.
--- NOTE | 2018-07-12 02:30 | NUR ---
I UNIT OF PRBC COMPLETED. NO TRANSFUSION REACTION OCCURRED. V/S STABLE .
--- NOTE | 2018-07-12 03:29 | NUR ---
PT C/O PAIN TO RT STUMP 09/08. NORCO 7.5/325 MG PO GIVEN.
[2018-07-12 05:19] VITALS: BP 142/54
--- NOTE | 2018-07-12 05:28 | NUR ---
PT HAD A RESTFUL NIGHT. SHE WAS MEDICATED FOR PAIN X2 WITH RELIEF. PT HAD I UNIT OF PRBC THIS SHIFT. NO ADVERSE REACTION TO TRANSFUSION NOTED. DRESSING TO COCCYX AND RT LEG STUMP CHANGED. PT SCHEDULED FOR HEMODIALYSIS TODAY. IV SITE TO RT HAND W/ NO S/S OF INFILTRATION. NO BM NOTED THIS SHIFT AND NO EPISODE OF RECTAL BLEEDING. ALL NEEDS ATTENDED TO. CONTACT ISOLATION MAINTAINED.
[2018-07-12 06:20] LABS: CARBON DIOXIDE 32.4 mmol/L (21-32); MAGNESIUM 1.8 mg/dL (1.8-2.4); PHOSPHOROUS 3.3 mg/dL (2.5-4.9); POTASSIUM SERUM 3.9 mmol/L (3.5-5.1)
[2018-07-12 06:33] LABS: BASOPHIL % 0.6 % (0-2); PLATELET COUNT 184 x10^3mcL (130-400); RED CELL DISTRIBUTION WIDTH 16.4 % (11.5-14.5)
--- NOTE | 2018-07-12 07:35 | NUR ---
RECEIVED PATIENT AWAKE/ALERT, NO DISTRESS NOTED. NO C/O PAIN. TELE #19 NOTED. IV TO RH INTACT AND SL NOTED. YENY AV SHUNT W/ POSITIVE THRILL/BRUIT. INFORM PATIENT WILL HAVE DIALYSIS TODAY. CALL LIGHT IN REACH.
[2018-07-12 07:42] LABS: CREATININE SERUM 5.1 mg/dL (0.6-1.0)
--- NOTE | 2018-07-12 07:53 | NUR ---
LAB CALL FOR CREAT 5.1 PATIENT SCHEDULE FOR HD TODAY, WILL NOTIFIED DR. SCHULTZ.
--- NOTE | 2018-07-12 08:27 | NUR ---
PATIENT SLEEPING AROUSED FOR BREAKFAST, ADMINISTERED PO MEDS PATIENT TOLERATED. REFUSED LACTULOSE. ENCOURAGE PATIENT TO EAT HER BREAKFAST. NEEDS ATTENDED. CALL LIGHT WITHIN REACH.
--- NOTE | 2018-07-12 09:43 | NUR ---
DR. SAHA SEEN PATIENT AND UPDATED NO ACTIVE BLEEDING OVERNIGHT, NEW ORDER FOR RENAL DIET. D/C LACTULOSE AND ATIVAN. DR. SCHULTZ WAS AWARE CREAT 5.1 AWAITING FOR HD.
[2018-07-12 10:06] VITALS: BP 100/59
--- NOTE | 2018-07-12 11:39 | NUR ---
MEDICATED PAIN FOR RT STUMP PAIN 09/08 WITH NORCO 1 TAB PO, DIALYSIS NURSE JUST ARRIVE WILL DIALYZE PATIENT. CALL LIGHT WITHIN REACH
--- NOTE | 2018-07-12 12:07 | NUR ---
PATIENT RESTING IN BED OBTAIN CONSENT FOR HEMODIALYSIS, PATIENT AGREE AND SIGNED. NO FURTHER QUESTIONS. DIALYSIS NURSE AT BEDSIDE WILL START HD. ORDERS AND LAB GIVEN; 2 LITERS OF NS GIVEN.
--- NOTE | 2018-07-12 12:42 | NUR ---
PATIENT RESTING IN BED COMFORTABLE EYES CLOSED, DIALYSIS IN PROGRESS. BP 123/82, HR 73. NO DISTRESS NOTED. CONT TO MONITOR.
[2018-07-12 12:44] VITALS: BP 123/82
--- NOTE | 2018-07-12 13:53 | NUR ---
ASSISTED PATIENT UP FOR LUNCH, ADMINISTERED DUE MED. DIALYSIS IN PROGRESS, VSS. CONT TO MONITOR.
--- NOTE | 2018-07-12 14:40 | NUR ---
Initial Nutrition Assessment- 225T/A CHRISTINA MUELLER IA HR Dx: Rectal bleed, elevated troponin PMHx: ESRD on HD MWF, HTN, DM PSHx: Right AKA Labs: BUN 22H, CREAT 5.1H, WBC 12.8H, BG 88(WNL), A1C 4.6 (WNL) Meds: D50%, humulin, lantus, Lipitor, zofran Diet: Renal PO Intake: (07/11) Dinner 30% Ht: 157.48 cm (62") Wt: 59 kg (130#) BMI: 23.9 kg/m2 (normal) IBW: 110# (50kg) %IBW: 118 UBW: ask pt. Age: 52/F Food Allergies: tuna oil Skin: pale and annie in appearance Sacha: 15 Edema: trace to lower extremities GI: last BM: 07/11 (bloody output) Trigger: unintentional wt loss, poor PO > 3 days Per H&P, pt is a 52 year old female with past medical history of HTN, DM, ESRD on HD MWF, right AKA presents to the ED from [facility] with recurrent rectal bleeding. Patient was discharged from [facility] [place] three [place] ago for rectal bleeding and required transfusion of 2 units pRBC. EGD on 07/05 showed gastroparesis otherwise negative. Colonoscopy on 07/07 showed a stercoral ulcer likely due to fecal impaction. RDN visit (07/12): Pt said that she has good appetite and does not have any N/V at this time. She was not aware that breakfast was on the table in the morning and therefore did not eat it but said that she will eat it now. Problem with: N: no V: no D: no C: no Problems with: Chewing/Swallowing: no Current appetite: fair Recent wt change: unable to access Vitamin/Supplement use: no Special diet at home: regular Physical activity: unable to access Education: pt wanted to eat her breakfast at this time. Diet education will be provided during a follow up visit. Estimated Nutritional Needs Based on actual body weight 59 kg Energy: 9576-9411 kcal/d (30-35 kcal/kg-dialysis) Protein: 71-88 g/d (1.2-1.5 g/kg)-for HD Fluid: per MD Nutrition Diagnosis 1. Increased nutrient needs related to increased metabolic demands as evidenced by patient on HD. Intervention 1. Recommend continuing Renal diet. 2.Recommend Nepro with carbsteady BID for poor PO Monitor/Evaluate Goal: PO intake at least 75% of estimated needs Monitor: PO intake, Labs, GI function F/U in 3-5 days as moderate risk 07/15-
--- NOTE | 2018-07-12 14:41 | NUR ---
1. Recommend continuing Renal diet. 2.Recommend Nepro with carbsteady BID for poor PO
--- NOTE | 2018-07-12 15:00 | NUR ---
PER DIALYSIS NURSE HD COMPLETED REMOVED 2.6L, PER DIALYSIS NURSE WILL BE BACK TO CHANGED YENY AV SHUNT SITE PATIENT BLEEDING AND DIALYSIS NURSE WANT TO KEEP PRESSURE FOR TWO HOURS. RN ASSESS YENY SHUNT NO MORE BLEEDING NOTED. CONT TO MONITOR.
--- NOTE | 2018-07-12 17:47 | NUR ---
PATIENT IN BED NO COMPLAIN, VISITOR AT BEDSIDE. ADMINISTERED MEDS PO PATIENT TOLERATED WELL. ASSISTING CHANGED PATIENT'S GOWN AND REPOSITION UP IN BED FOR DINNER. BS 104 NO COVERAGE NEEDED. NEEDS ATTENDED. CALL LIGHT WITHIN REACH.
--- NOTE | 2018-07-12 18:01 | NUR ---
NORCO 1 TAB PO FOR C/O 08/09 RT STUMP PAIN. PATIENT SAT UP IN BED EATING HER DINNER. CONT TO MONITOR.
--- NOTE | 2018-07-12 18:21 | NUR ---
PER PATIENT'S SISTER LESIA WILL TRY TO GET PRESCRIPTION FROM PATIENT PCP, NO MORE MEDICATIONS (DESCOVY/PREZCOBIX); PATIENT HAS NOT TAKE OVER 3 MONTHS.
[2018-07-12 18:38] VITALS: BP 116/75
--- NOTE | 2018-07-12 19:11 | NUR ---
CARE ENDORSE TO SIMIN RN, PATIENT RESTING IN BED COMFORTABLE. NO C/O PAIN. FAMILY MEMBERS REMAIN AT BEDSIDE.
--- NOTE | 2018-07-12 19:30 | NUR ---
RECEIVED PT IN BED RESTING WITH FAMILY AT BEDSIDE.NO ACUTE RESPIRATORY DISTRESS NOTED.DENIES NAY PAIN AT THIS TIME. WOUND ULCER TO COCCYX WITH OPTIFOAM. RIGHT LEG STUMP WITH DRESSING. AIRMATRESS IN PLACED. AV SHUNT TO YENY.POSITIVE OF BRUIT AND THRILL.BED IN LOWEST POSITION,CALL LIGHT WITHIN REACH. WILL CONTINUE TO MONITOR.
[2018-07-12 20:59] VITALS: BP 153/59
--- NOTE | 2018-07-13 05:11 | NUR ---
PT C/O LEFT LEG PAIN 09/08.MEDICATED NORCO 7.5/325MG PO ORDERED. WILL CONTINUE TO MONITOR.
--- NOTE | 2018-07-13 06:05 | NUR ---
PT AAOX4.NO SOB NOTED.C/O PAIN.MEDIACTED NORCO ORDERED.DRESSING CHANGED TO SACRAL AREA.BED IN LOWEST POSITION,CALL LIGHT WITHIN REACH. WILL CONTINUE TO MONITOR.
[2018-07-13 06:15] VITALS: BP 143/48
[2018-07-13 06:59] LABS: CALCIUM 9.3 mg/dL (8.5-10.1); CARBON DIOXIDE 33.7 mmol/L (21-32); CREATININE SERUM 3.5 mg/dL (0.6-1.0); MAGNESIUM 1.7 mg/dL (1.8-2.4); PHOSPHOROUS 2.6 mg/dL (2.5-4.9); POTASSIUM SERUM 3.6 mmol/L (3.5-5.1)
--- NOTE | 2018-07-13 07:08 | NUR ---
RECEIVED PATIENT ASLEEP AROUSABLE, NO C/O PAIN AT THIS TIME. TELE #19 NOTED, IV TO RH INTACT AND SL NOTED, CALL LIGHT WITHIN REACH.
--- NOTE | 2018-07-13 07:34 | NUR ---
CARE ENDORSED TO DAY NURSE
[2018-07-13 08:40] LABS: BASOPHIL % 0.4 % (0-2); PLATELET COUNT 246 x10^3mcL (130-400)
[2018-07-13 08:58] LABS: RED CELL DISTRIBUTION WIDTH 16.7 % (11.5-14.5)
--- NOTE | 2018-07-13 09:43 | NUR ---
0935--Ernestina Llanes (rock picker, contract attorney), and I went to speak with patient regarding the procedure done on Wednesday, July 11, 2018. Via contract attorney: Patient was informed that the colonoscopy was done instead of the sigmoidoscopy due to the presence of blood seen farther up in the colon. We also explained to the patient that we cauterized and clipped the bleeding ulcer sites in the rectal area. Pt stated she has had no more bleeding since then or now. Patient's questions and concerns were answered and addressed.
--- NOTE | 2018-07-13 09:45 | NUR ---
PATIENT SAT UP IN BED EATING HER BREAKFAST, ADMINISTERED ALL PO MEDS AMD MG-RIDER 2GM FOR MG 1.7 IVPB ORDERED. IV TO RW FLUSH WELL AND PATENT. DR. SAHA WITH GI NURSE AT BEDSIDE UPDATED PATIENT WITH THE PROCEDURE THAT HAS BEEN DONE AND PATIENT VERBALIZE UNDERSTAND. NEEDS ATTENDED. CALL LIGHT WITHIN REACH.
[2018-07-13 09:59] VITALS: BP 112/45
--- NOTE | 2018-07-13 11:00 | NUR ---
PATIENT C/O IV SITE HURTING, NO SWELLING OR ERYTHEMA NOTED. STOP MGRIDER; REMOVED IV SITE TO RH; GAUZES APPLIED TO SITE. WILL ATTEMPT IV SITE LATER PER PATIENT IT VERY PAINFUL IN SAME HAND.
--- NOTE | 2018-07-13 11:45 | NUR ---
PER MARLYN WOUND RN RT STUMP AND COCCYX DRESSING IS CHANGED; INSTRUCT TO USE THERAHONEY AND PACKING TO RT STUMP. PATIENT C/O PAIN 6/10 AFTER DRESSING CHANGED, ULTRAM 50MG PO ADMINISTERED. BS 114 NO COVERAGE NEEDED. CALL LIGHT WITHIN REACH.
[2018-07-13 12:57] VITALS: BP 148/70
--- NOTE | 2018-07-13 13:07 | NUR ---
WOUND CARE EVALUATION NOTE: REASON FOR EVALUATION: RIGHT STUMP AND SACRALCOCCYX WOUNDS SKIN ASSESSMENT DONE WITH THIS 52 Y/O FEMALE PT READMITTED FROM SNF TO [facility] [place] INITIAL DX OF RECTAL BLEEDING. PAST MEDICAL HX INCLUDES DM, HTN, HLD. 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 SKIN IS WARM AND DRY, LLE NO HAIR GROWTH, NO EDEMA, RIGHT AKA. PLAN OF CARE DISCUSSED WITH MURALI BLANC NP. PER RIGHT OF WAY CLEARER, WILL INSTRUCT PT TO FOLLOW UP WITH ALLYSON BURNETTE SURGEON UPON DISCHARGE INTEGUMENTARY: -BLANCHABLE REDNESS TO LEFT HEEL -IAD TO RIGHT AND LEFT INNER BUTTOCKS MULTIPLE SKIN EROSIONS WITH LARGEST 0.5X0.5CM, SUPERFICIAL DEPTH, PERIWOUND SKIN INTACT, WITH REDNESS EXTENDED TO SACRALCOCCYX WOUND EDGE. -PRESSURE ULCER INJURY PREVIOUS UN-STAGEABLE TO SACRALCOCCYX, IS NOW STAGE 4 100 % GRANULATION TISSUE WITH MUSCLE OBSERVED, [id number] WITH UNDERMINING BETWEEN 11-6 O'CLOCK, WITH DEEPEST 3 CM TO 5 O'CLOCK DIRECTION, MODERATE SEROUS DRAINAGE, PER-WOUND SKIN INTACT WITH SURROUNDING REDNESS, NO ODOR, -RIGHT AKA STUMP SURGICAL WOUND DEHISCENCE 1X15CM DEPTH UTD WOUND BED WITH 50 % YELLOW / BROWN SLOUGH AND 50% PINK GRANULATING TISSUE, AREA MOIST, NO ODOR AFTER CLEANSE. PAIN5/10, NICOLE WOUND TOWARD 10 O'CLOCK DIRECTION A BROWN SOFT SLOUGH UNKNOW ETIOLOGY WITH 1X1CM, MOIST, NO ODOR. NICOLE-WOUND SKIN INTACT. RECOMMENDATIONS: -SURGEON TO CONSULT RIGHT STUMP SURGICAL WOUND DEHISCENCE -KEEP SKIN DRY AND CLEAN AT ALL TIMES, PLEASE CHECK Q2H AND PRN FOR INCONTINENCY OF BOWEL AND BLADDER. -CLEANSE RIGHT STUMP WOUND WITH WOUND CARE SOLUTION, PAT DRY, APPLY THERAHONEY GEL AND COVER WITH DRY DRESSING QM-W-F AND PRN IF SOILING -CLEANSE SACRALCOCCYX WOUND WITH WOUND CARE SOLUTION, PAT DRY, PACK WOUND WITH THERAHONEY DRESSING SHEET AND COVER WITH DRY DRESSING QM-W-F AND PRN IF SOILING -APPLY HEEL RAISER TO LEFT HEEL AT ALL TIMES -OFFLOAD LEFT HEEL BY PLACING PILLOWS UNDER CALVES UNLESS OTHERWISE CONTRAINDICATED -PRESSURE REDISTUBUTION SURFACE THERAPY -TURN AND REPOSITION Q2H, OFFLOAD SACRALCOCCYX BY TURNING RIGHT AND LEFT -CONTINUE TO FOLLOW RD RECOMMENDATIONS WILL FOLLOW UP PT Q7-10 DAYS. PLEASE CONTACT WOUND CARE NURSE FOR ANY QUESTION AND CHANGE OF WOUND CONDITION.
--- NOTE | 2018-07-13 13:19 | NUR ---
ASSISTING PATIENT SAT UP AT SIDE OF BED FOR LUNCH, MEDS PO GIVEN. RE-INFORCED PATIENT PAIN MANAGEMENT PER DR. SAHA CHANGED PATIENT PAIN REGIME FROM NORCO Q4H TO Q12HR AND ULTRAM Q12HR PRN. PATIENT VERBALIZE UNDERSTAND. CALL LIGHT WITHIN REACH.
--- NOTE | 2018-07-13 14:16 | NUR ---
SURU RN ATTEMPT IV ACCESS NOT ABLE PLACED, SAP DIRECTOR MURALI AWARE CHANGE MG-RIDER TO PO MAGOXIDE. NORCO 1 TAB PO GIVEN FOR C/O 8/10 PAIN TO RT STUMP AND RT ARM PAIN AFTER ATTEMPT IV. REPOSITIONED UP IN BED. CALL LIGHT WITHIN REACH.
[2018-07-13 15:52] VITALS: BP 148/70
--- NOTE | 2018-07-13 16:05 | NUR ---
PATIENT AWAKE IN BED, MAG-OXIDE 400MG PO X 1 GIVEN. NEEDS MET. CALL LIGHT WITHIN REACH.
[2018-07-13 17:14] VITALS: BP 129/55
--- NOTE | 2018-07-13 17:48 | NUR ---
PATIENT RESTING IN BED WITH FAMILY MEMBERS AT BEDSIDE, DUE MEDS GIVEN. BS 77 NO COVERAGE NEEDED, NEW IV TO RH #24G DONE BY MICHELLE CAR; PATIENT IS HARD STICK WITH LIMITED TO ONE ARM. NEEDS ATTENDED. CHANGED NEW GOWN. INFORM FAMILY MEMBERS PATIENT IS TRANSFER T[facility]IS AT 7PM. CONT TO MONITOR.
--- NOTE | 2018-07-13 18:23 | NUR ---
CALL TO NGUYỄN GAVE REPORT TO ALPHONSO GOOD, INFORM NURSE TOLL MECHANIC TIME 7PM BY [facility].
--- NOTE | 2018-07-13 18:39 | NUR ---
PATIENT SITTING UP IN BED FAMILY MEMBERS ASSISTING PATIENT WITH CHICKEN SOUP FROM HOME. DISCHARGE INSTRUCTIONS EXPLAINED TO PATIENT. PATIENT VERBALIZE UNDERSTAND. ACKNOWLEDGE OF TRANSFER SIGNED NO FURTHER QUESTIONS.
--- NOTE | 2018-07-13 19:13 | NUR ---
[facility] IS HERE FOR PATIENT, GAVE REPORT TO EMT. TELE BOX #19 REMOVED AND GAVE TO JOHANNA BRADLEY. PATIENT TRANSFER VIA [place]ERNEY WITH FAMILY MEMBERS. ALL BELONGINGS WITH FAMILY MEMBERS.
== END 2018-07-13 19:32 | DRG 254 ==
LOC: ED 04:47 → DU 06:57
PROVIDERS: Emergency Medicine; Internal Medicine Gastroenterology; ADMIT Family Medicine
PROC: 30233N1 Transfusion of Nonautologous Red Blood Cells into Peripheral Vein, Percutaneous Approach (ICD-10-PCS; 2018-07-10)
PROC: 5A1D70Z Performance of Urinary Filtration, Intermittent, Less than 6 Hours Per Day (ICD-10-PCS; 2018-07-10)
PROC: 0W3P8ZZ Control Bleeding in Gastrointestinal Tract, Via Natural or Artificial Opening Endoscopic (ICD-10-PCS; principal; 2018-07-11 13:00)
DX: K62.6 Ulcer of anus and rectum (principal); E43 Unspecified severe protein-calorie malnutrition; L89.153 Pressure ulcer of sacral region, stage 3; E11.22 Type 2 diabetes mellitus with diabetic chronic kidney disease; D62 Acute posthemorrhagic anemia; E83.39 Other disorders of phosphorus metabolism; I24.8 Other forms of acute ischemic heart disease; E87.6 Hypokalemia; I12.0 Hypertensive chronic kidney disease with stage 5 chronic kidney disease or end stage renal disease; N18.6 End stage renal disease; E78.5 Hyperlipidemia, unspecified; F41.9 Anxiety disorder, unspecified; Z99.2 Dependence on renal dialysis; Z79.82 Long term (current) use of aspirin; Z68.23 Body mass index [BMI] 23.0-23.9, adult; Z89.611 Acquired absence of right leg above knee; Z88.0 Allergy status to penicillin; Z88.8 Allergy status to other drugs, medicaments and biological substances; Q27.33 Arteriovenous malformation of digestive system vessel; I42.9 Cardiomyopathy, unspecified; I35.0 Nonrheumatic aortic (valve) stenosis; F32.9 Major depressive disorder, single episode, unspecified; K56.41 Fecal impaction
CPT/HCPCS: 45378; 82962; 83880; J0171; J1200; J1610; J2250; J2310; J2916; J3010; J3475; J3480; J3490; J7030; J7050; P9016; Q0092; Q0163

== ENCOUNTER 2018-07-30 06:53 | Inpatient (IN) | payer OTHER ==
[~2018-07-30] VITALS: Ht 157.5 cm; Wt 63.7 kg
[2018-07-30 08:09] LABS: PLATELET COUNT 253 x10^3mcL (130-400)
[2018-07-30 08:22] LABS: ALKALINE PHOSPHATASE 751 U/L (46-116); ALT/SGPT 45 U/L (14-59); AST/SGOT 57 U/L (15-37); BILIRUBIN TOTAL 2.1 mg/dL (0.20-1.00); CALCIUM 9.6 mg/dL (8.5-10.1); CARBON DIOXIDE 33.7 mmol/L (21-32); CHLORIDE SERUM 103 mmol/L (98-107); GLUCOSE SERUM 93 mg/dL (74-106); POTASSIUM SERUM 4.5 mmol/L (3.5-5.1); SODIUM SERUM 140 mmol/L (136-145)
[2018-07-30 08:32] LABS: ALBUMIN 1.2 g/dL (3.4-5.0); CREATININE SERUM 4.1 mg/dL (0.6-1.0); GFR1 12 mL/min; TOTAL PROTEIN, SERUM 4.8 g/dL (6.4-8.2)
[2018-07-30 09:44] LABS: BAND NEUTROPHIL 0 % (0-10); BASOPHIL 0 % (0-2); MONOCYTE 6 % (0-7); SEGMENTED NEUTROPHILS 90 % (37-75)
[2018-07-30 09:46] LABS: rbc morphology (normal/abnorm) ABNORMAL (NORMAL)
[2018-07-30] MEDS ORDERED: DULCOLAX10 M1 RC (10:14)
[2018-07-30] MEDS ORDERED: FLEET ENEMA135 ML RC (10:15)
[2018-07-30] MEDS ORDERED: [UNRECOGNIZED DRUG - OTHER] IJ (10:15)
[2018-07-30] MEDS ORDERED: ACETAMINOPHEN-H1 TA1 PO (10:16)
[2018-07-30] MEDS ORDERED: DEX4 GLUCOSE15 GM PO (10:16)
[2018-07-30] MEDS ORDERED: GOOD NEIGH1200 MG/15 PO (10:17)
[2018-07-30] MEDS ORDERED: KAPVAY0.1 MG PO ×2 (10:17→11:00)
[2018-07-30] MEDS ORDERED: APAP500 MG PO (10:18)
[2018-07-30] MEDS ORDERED: LORAZEPAM1 MG PO (10:18)
[2018-07-30] MEDS ORDERED: ATORVASTATIN CA40 M1 PO (10:19)
[2018-07-30] MEDS ORDERED: B-COMPLEX PLUS1 EACH PO (11:00)
[2018-07-30] MEDS ORDERED: ESCITALOPRAM20 M1 PO (11:00)
[2018-07-30] MEDS ORDERED: NEU300 PO (11:01)
[2018-07-30] MEDS ORDERED: HUMALOG100 UNIT/1 SQ (11:01)
[2018-07-30] MEDS ORDERED: JANUVIA100 M1 PO (11:01)
[2018-07-30] MEDS ORDERED: TOPROL XL25 MG PO (11:02)
[2018-07-30] MEDS ORDERED: LOPERAMIDE HCL2 M1 PO (11:02)
[2018-07-30] MEDS ORDERED: LACTULOSE10 GM/152 PO (11:02)
[2018-07-30] MEDS ORDERED: RENVELA800 M1 PO (11:03)
[2018-07-30] MEDS ORDERED: PRO30 PO (11:03)
[2018-07-30] MEDS ORDERED: PANTOPRAZOLE SO40 M1 PO (11:03)
[2018-07-30] MEDS ORDERED: SANOINT TP (11:04)
[2018-07-30 13:03] VITALS: BP 109/77
[2018-07-30 16:00] VITALS: BP 108/49
[2018-07-30 19:20] VITALS: BP 116/52
[2018-07-30 23:11] VITALS: BP 117/51
[2018-07-31 03:12] VITALS: BP 121/62
[2018-07-31 05:12] LABS: BASOPHIL % 0.2 % (0-2); PLATELET COUNT 270 x10^3mcL (130-400)
[2018-07-31 05:31] LABS: CALCIUM 8.8 mg/dL (8.5-10.1); CARBON DIOXIDE 29.5 mmol/L (21-32); POTASSIUM SERUM 5.1 mmol/L (3.5-5.1)
[2018-07-31 05:40] LABS: CREATININE SERUM 4.5 mg/dL (0.6-1.0)
[2018-07-31 05:51] LABS: MAGNESIUM 1.6 mg/dL (1.8-2.4); PHOSPHOROUS 3.8 mg/dL (2.5-4.9)
[2018-07-31 08:20] VITALS: BP 122/54
[2018-07-31 11:14] VITALS: BP 125/59
[2018-07-31 20:27] VITALS: BP 158/44
[2018-08-01 05:33] VITALS: BP 120/48
[2018-08-01 07:40] LABS: BASOPHIL % 0.1 % (0-2); PLATELET COUNT 243 x10^3mcL (130-400)
[2018-08-01 07:41] LABS: CALCIUM 8.6 mg/dL (8.5-10.1); CARBON DIOXIDE 26.9 mmol/L (21-32); CREATININE SERUM 2.8 mg/dL (0.6-1.0); MAGNESIUM 1.6 mg/dL (1.8-2.4); PHOSPHOROUS 2.9 mg/dL (2.5-4.9); POTASSIUM SERUM 4.2 mmol/L (3.5-5.1)
[2018-08-01 07:49] VITALS: BP 111/45
[2018-08-01 07:59] LABS: BILIRUBIN DIRECT 2.71 mg/dL (0.0-0.2); BILIRUBIN TOTAL 3.08 mg/dL (0.20-1.00)
[2018-08-01 08:25] LABS: RED CELL DISTRIBUTION WIDTH 17.2 % (11.5-14.5)
[2018-08-01 11:46] VITALS: BP 126/42
[2018-08-01 16:39] VITALS: BP 111/50
[2018-08-01 20:27] VITALS: BP 125/48
[2018-08-02 05:47] VITALS: BP 113/63
[2018-08-02 08:00] LABS: BILIRUBIN DIRECT 1.57 mg/dL (0.0-0.2); BILIRUBIN TOTAL 1.85 mg/dL (0.20-1.00); CARBON DIOXIDE 26.1 mmol/L (21-32); CREATININE SERUM 3.9 mg/dL (0.6-1.0); MAGNESIUM 1.6 mg/dL (1.8-2.4); PHOSPHOROUS 3.6 mg/dL (2.5-4.9); POTASSIUM SERUM 4.4 mmol/L (3.5-5.1)
[2018-08-02 08:01] LABS: TOTAL PROTEIN, SERUM 4.9 g/dL (6.4-8.2)
[2018-08-02 08:57] LABS: BASOPHIL % 0.4 % (0-2); PLATELET COUNT 235 x10^3mcL (130-400); RED CELL DISTRIBUTION WIDTH 18.2 % (11.5-14.5)
[2018-08-02 09:27] VITALS: BP 137/53
[2018-08-02 12:44] VITALS: BP 125/51
[2018-08-02 15:44] VITALS: Ht 157.5 cm; Wt 63.7 kg
[2018-08-02 18:11] VITALS: BP 136/56
[2018-08-02 21:16] VITALS: BP 139/47
[2018-08-03 06:11] VITALS: BP 133/50
[2018-08-03 07:33] LABS: POTASSIUM SERUM 3.3 mmol/L (3.5-5.1)
[2018-08-03 07:34] LABS: ALBUMIN 0.9 g/dL (3.4-5.0); BILIRUBIN DIRECT 1.11 mg/dL (0.0-0.2); BILIRUBIN TOTAL 1.32 mg/dL (0.20-1.00); CALCIUM 8.8 mg/dL (8.5-10.1); CARBON DIOXIDE 34.3 mmol/L (21-32); CREATININE SERUM 2.6 mg/dL (0.6-1.0); TOTAL PROTEIN, SERUM 4.8 g/dL (6.4-8.2)
[2018-08-03 07:35] LABS: MAGNESIUM 1.6 mg/dL (1.8-2.4)
[2018-08-03 07:43] LABS: BASOPHIL % 0.4 % (0-2); PLATELET COUNT 231 x10^3mcL (130-400)
[2018-08-03 07:49] LABS: RED CELL DISTRIBUTION WIDTH 18.2 % (11.5-14.5)
[2018-08-03 09:45] VITALS: BP 146/56
[2018-08-03 17:43] VITALS: BP 113/74
[2018-08-03 19:46] VITALS: BP 109/62
[2018-08-04 04:52] VITALS: BP 128/44
[2018-08-04 06:36] LABS: CALCIUM 9.3 mg/dL (8.5-10.1); CARBON DIOXIDE 30.6 mmol/L (21-32); CREATININE SERUM 3.5 mg/dL (0.6-1.0); PHOSPHOROUS 3.5 mg/dL (2.5-4.9); POTASSIUM SERUM 3.8 mmol/L (3.5-5.1)
[2018-08-04 07:38] LABS: BASOPHIL % 0.7 % (0-2); PLATELET COUNT 229 x10^3mcL (130-400)
[2018-08-04 08:58] VITALS: BP 144/50
[2018-08-04 16:45] VITALS: BP 143/51
[2018-08-04 20:01] VITALS: BP 157/71
[2018-08-05 05:39] VITALS: BP 145/58
[2018-08-05 06:18] LABS: BASOPHIL % 0.7 % (0-2); PLATELET COUNT 222 x10^3mcL (130-400)
[2018-08-05 06:44] LABS: CALCIUM 8.9 mg/dL (8.5-10.1); CARBON DIOXIDE 27.5 mmol/L (21-32); CREATININE SERUM 2.6 mg/dL (0.6-1.0); POTASSIUM SERUM 3.1 mmol/L (3.5-5.1)
[2018-08-05 06:58] LABS: RED CELL DISTRIBUTION WIDTH 17.9 % (11.5-14.5)
[2018-08-05 09:56] VITALS: BP 127/57
[2018-08-05 15:22] VITALS: BP 124/55
[2018-08-05 21:08] VITALS: BP 115/48
[2018-08-06 05:43] VITALS: BP 117/49
[2018-08-06 06:57] LABS: CARBON DIOXIDE 27.8 mmol/L (21-32); CREATININE SERUM 3.3 mg/dL (0.6-1.0); POTASSIUM SERUM 3.4 mmol/L (3.5-5.1)
[2018-08-06 08:17] LABS: BASOPHIL % 0.7 % (0-2); PLATELET COUNT 229 x10^3mcL (130-400)
[2018-08-06 08:19] LABS: RED CELL DISTRIBUTION WIDTH 17.6 % (11.5-14.5)
[2018-08-06 09:34] VITALS: BP 115/44
[2018-08-06] MEDS ORDERED: MER500I IV (14:40)
[2018-08-06] MEDS ORDERED: COLISTIMETHATE150 M1 IV (14:41)
[2018-08-06] MEDS ORDERED: LAC PO (14:42)
[2018-08-06] MEDS ORDERED: NORCO1 TA2 PO (14:42)
[2018-08-06 16:59] VITALS: BP 119/40
[2018-08-06 21:45] VITALS: BP 114/50
[2018-08-07 06:23] VITALS: BP 118/44
[2018-08-07 08:18] VITALS: BP 114/45
[2018-08-07 08:53] LABS: CALCIUM 9.2 mg/dL (8.5-10.1); CARBON DIOXIDE 25.7 mmol/L (21-32); CREATININE SERUM 2.5 mg/dL (0.6-1.0); POTASSIUM SERUM 3.8 mmol/L (3.5-5.1)
[2018-08-07 09:57] LABS: PLATELET COUNT 170 x10^3mcL (130-400)
[2018-08-07 14:24] LABS: BAND NEUTROPHIL 0 % (0-10); BASOPHIL 0 % (0-2); MONOCYTE 3 % (0-7); PLATELET MORPHOLOGY PLATELETS DECREASED; SEGMENTED NEUTROPHILS 84 % (37-75); rbc morphology (normal/abnorm) NORMAL (NORMAL)
[2018-08-07 17:00] VITALS: BP 111/45
[2018-08-07 18:22] VITALS: BP 111/45
== END 2018-08-07 18:20 | DRG 309 ==
LOC: ED 06:53 → DU 10:19 → MU 10:19 → IC 10:19 → DU 07-31 17:11 → MU 08-02 14:06
PROVIDERS: Emergency Medicine; Family Medicine; Internal Medicine Nephrology; Neuromusculoskeletal Medicine, Sports Medicine; ADMIT Internal Medicine
PROC: 5A1D70Z Performance of Urinary Filtration, Intermittent, Less than 6 Hours Per Day (ICD-10-PCS; 2018-07-31)
PROC: 5A1D70Z Performance of Urinary Filtration, Intermittent, Less than 6 Hours Per Day (ICD-10-PCS; 2018-08-02)
PROC: 5A1D70Z Performance of Urinary Filtration, Intermittent, Less than 6 Hours Per Day (ICD-10-PCS; 2018-08-04)
PROC: 0QBB0ZZ Excision of Right Lower Femur, Open Approach (ICD-10-PCS; principal; 2018-08-05 13:30)
PROC: 5A1D70Z Performance of Urinary Filtration, Intermittent, Less than 6 Hours Per Day (ICD-10-PCS; 2018-08-06)
DX: T87.43 Infection of amputation stump, right lower extremity (principal); I21.A1 Myocardial infarction type 2; R65.21 Severe sepsis with septic shock; A41.9 Sepsis, unspecified organism; G93.41 Metabolic encephalopathy; E43 Unspecified severe protein-calorie malnutrition; I13.2 Hypertensive heart and chronic kidney disease with heart failure and with stage 5 chronic kidney disease, or end stage renal disease; K80.00 Calculus of gallbladder with acute cholecystitis without obstruction; L89.154 Pressure ulcer of sacral region, stage 4; E11.22 Type 2 diabetes mellitus with diabetic chronic kidney disease; Y83.8 Other surgical procedures as the cause of abnormal reaction of the patient, or of later complication, without mention of misadventure at the time of the procedure; F41.9 Anxiety disorder, unspecified; E78.5 Hyperlipidemia, unspecified; L03.031 Cellulitis of right toe; D63.8 Anemia in other chronic diseases classified elsewhere; E11.69 Type 2 diabetes mellitus with other specified complication; M86.8X8 Other osteomyelitis, other site; T87.81 Dehiscence of amputation stump; E11.51 Type 2 diabetes mellitus with diabetic peripheral angiopathy without gangrene; E87.1 Hypo-osmolality and hyponatremia; E11.649 Type 2 diabetes mellitus with hypoglycemia without coma; N18.6 End stage renal disease; T68.XXXA Hypothermia, initial encounter; R74.0 Nonspecific elevation of levels of transaminase and lactic acid dehydrogenase [LDH]; I35.0 Nonrheumatic aortic (valve) stenosis; I25.5 Ischemic cardiomyopathy; Z99.2 Dependence on renal dialysis; Z79.84 Long term (current) use of oral hypoglycemic drugs; Z89.611 Acquired absence of right leg above knee; Z88.0 Allergy status to penicillin; Z88.1 Allergy status to other antibiotic agents; Z68.21 Body mass index [BMI] 21.0-21.9, adult
CPT/HCPCS: 74181; 82962; 94150; B4164; G0480; J0770; J0885-EC; J1170; J1956; J2020; J2185 ×2; J2270; J3010; J3475; J3480; J3490; J7030; J7042; J7070; Q0092

== ENCOUNTER 2018-08-10 02:00 | Inpatient (IN) | payer OTHER ==
[2018-08-10] VITALS (12 sets, daily range): BP systolic 90–142; BP diastolic 46–83
[~2018-08-10] VITALS: Ht 152.4 cm; Wt 65.9 kg
[~2018-08-10 02:00] MED LIST changes: +ACETAMINOPHEN-H1 TA1 PO; +APAP500 MG PO; +ATORVASTATIN CA40 M1 PO; +B-COMPLEX PLUS1 EACH PO; +COLISTIMETHATE150 M1 IV; +DEX4 GLUCOSE15 GM PO; +DULCOLAX10 M1 RC; +FLEET ENEMA135 ML RC; +GOOD NEIGH1200 MG/15 PO; +HUMALOG100 UNIT/1 SQ; +JANUVIA100 M1 PO; +KAPVAY0.1 MG PO; +LAC PO; +LACTULOSE10 GM/152 PO; +LOPERAMIDE HCL2 M1 PO; +LORAZEPAM1 MG PO; +MER500I IV; +NEU300 PO; +NORCO1 TA2 PO; +PANTOPRAZOLE SO40 M1 PO; +PRO30 PO; +SANOINT TP; +TOPROL XL25 MG PO; +[UNRECOGNIZED DRUG - OTHER] IJ
--- NOTE | 2018-08-10 02:07 | NUR ---
PT BIB AMBULANCE FOR ALOC SINCE THIS EVENING. PER CRYPTOLOGICAL TECHNICIAN PT BLOOD SUGAR DECLINED FROM 2100 89 TO 59 @0030. PT HAS RIGHT BELOW THE KNEE AMOPUTATION. ANKLE IV TO THE LEFT ANKLE STARTED PRIOR TO ARRIVAL. IN ROUTE PT BS 79. VITAL SIGNS IMPROVED. PT RECIEVES DIALYSIS THURSDAY, THURSDAY AND FRIDAYS. FISTUALS BILATERALLY, WORKING FISTULA ON THE LEFT ARM. PT HAS EDEMA TO THE LEFT ARM AND FACE. PT IS UNABLE TO ANSWER QUESTIONS AT THIS TIME. BUT DOES MOVE BODY AND OPEN HER EYES TO VERBAL. NO S/S OF DISTRESS. RESP E/U. COMFORT MEASURES IMPELMENTED. AWAITING MSE. WILL CONTINUE TO MONITOR.
--- NOTE | 2018-08-10 02:07 | NUR ---
ASSESSMENT AND OPENING NOTE MADE BY FLORENTINO PRESTON.
--- NOTE | 2018-08-10 03:08 | NUR ---
LAB AT BEDSIDE. UNSUCCESSFUL W/FIRST ATTEMPT.
--- NOTE | 2018-08-10 03:43 | NUR ---
PT SLEEPING ON GURNEY IN POSITION OF COMFORT. NO S/S OF DISTRESS. RESP E/U. LOW BLOOD PRESSURE NOTED. MD MADE AWARE. COMFORT MEASURES IMPLEMENTED. WILL CONTINUE TO MONITOR.
[2018-08-10 03:44] LABS: BASOPHIL % 0.1 % (0-2); CALCIUM 8.4 mg/dL (8.5-10.1); CARBON DIOXIDE 30.4 mmol/L (21-32); CHLORIDE SERUM 104 mmol/L (98-107); CREATININE SERUM 2.6 mg/dL (0.6-1.0); GFR1 20 mL/min; GLUCOSE SERUM 80 mg/dL (74-106); PLATELET COUNT 279 x10^3mcL (130-400); POTASSIUM SERUM 3.5 mmol/L (3.5-5.1); RED CELL DISTRIBUTION WIDTH 17.7 % (11.5-14.5); SODIUM SERUM 143 mmol/L (136-145)
[2018-08-10 03:49] LABS: ALKALINE PHOSPHATASE 456 U/L (46-116); ALT/SGPT 10 U/L (14-59); AST/SGOT 64 U/L (15-37); BILIRUBIN TOTAL 1.02 mg/dL (0.20-1.00); MAGNESIUM 1.7 mg/dL (1.8-2.4)
--- NOTE | 2018-08-10 04:24 | NUR ---
PT TAKEN TO CT SCAN
--- NOTE | 2018-08-10 05:58 | NUR ---
PT MEDICATED PER ORDER. SEE EMAR FOR DETAILS.
--- NOTE | 2018-08-10 06:12 | NUR ---
DR SLADE MADE AWARE OF OF BLOOD PRESSURE. AT BEDSIDE FOR REEVALUATION.
[2018-08-10 07:20] LABS: LIPASE 63 IU/L (73-393); TRIGLYCERIDES 69 mg/dL (<150)
--- NOTE | 2018-08-10 07:38 | NUR ---
REPORT GIVEN TO CABRERARN TO ASSUME CARE OF PT.
[2018-08-10 07:55] LABS: AMYLASE 16 U/L (25-115); CHOLESTEROL < 50 mg/dL (<200); CHOLESTEROL/HDL RATIO 3.1; HDL CHOLESTEROL 16 mg/dL (40-60)
--- NOTE | 2018-08-10 11:10 | NUR ---
DR. MEAD AT BEDSIDE TO SEE AND ASSESS PT. PER DR. MEAD PT NOT A CANIDATE FOR SURGERY AT THIS TIME. PRIMARY RN AWARE.
--- NOTE | 2018-08-10 12:21 | NUR ---
DR EVERETT AT BEDSIDE, ALL UPDATES GIVEN. NO FURTHER ORDERS AT THIS TIME.
--- NOTE | 2018-08-10 12:59 | NUR ---
FIRE CREW WORKER NOTICED PATIENTS MONITOR IN VTACH. WALKED INTO PATIENTS ROOM, PALPATED PULSE, NO PULSE FELT. CODE HERMES CALLED. CPR STARTED. SEE CODE HERMES FOR PROCESS.
--- NOTE | 2018-08-10 12:59 | NUR ---
WALKED INTO PATIENTS ROOM, AND NOTICED THAT PATIENT WAS IN VTACH. PALPATED PULSE, NO PULSE FELT. ANGIE MIRZA CALLED, CPR STARTED. SEE CODE BLUE SHEET FOR PROCESS.
--- NOTE | 2018-08-10 13:44 | NUR ---
LEVOPHED INCREASED TO 4 MCG/ MIN. PATIENTS B/P: 87/45 MAP:58
--- NOTE | 2018-08-10 14:06 | NUR ---
CHARGE NURSE, AARON MADE DR TOBAR AWARE TO CALL THE FAMILY.
--- NOTE | 2018-08-10 14:10 | NUR ---
POST INTUBATION ABG RESULTS COLLECTED AND READ BACK TO ALDO HANEY VENT ORDER TO INCREASE RR TO 22, RN CHRISTIANO AWARE.
--- NOTE | 2018-08-10 14:16 | NUR ---
MONITORING PATIENT. UPON ASSESSMENT NOTICED THAT PATIENT IS FROTHING THROUGH THE MOUTH. SUCTIONED WAS GIVEN. PATIENT DID NOT HAVE A GAG AND PUPILS WHERE BOTH FIXED, LEFT PUPIL WAS 5 MM AND RIGHT PUPIL WAS 3MM. WILL CONTINUE TO MONITOR PATIENT.
--- NOTE | 2018-08-10 14:18 | NUR ---
BP 123/82 (108). LEVOPHED TITRATED FROM 30 MCG/MIN TO 25 MCG/MIN.
--- NOTE | 2018-08-10 14:20 | NUR ---
WOUND CARE CONSULT PENDING, PT NOT AT STABLE CONDITION, WILL FOLLOW PREVIOUS ORDER AT THIS TIME.
--- NOTE | 2018-08-10 14:30 | NUR ---
LEVOPHED TITRATED DOWN TO 20 MCG/ MIN. PATIENTS BP: 127/73 MAP: 103. WILL CONTINUE TO MONITOR.
--- NOTE | 2018-08-10 14:40 | NUR ---
TITRATED LEVOPHED TO 15 MCG/ MIN. PATIENTS BP: 138/80 MAP(111). WILL CONTINUE TO MONITOR.
--- NOTE | 2018-08-10 14:50 | NUR ---
LEVOPHED TITRATED TO 15 MCG/MIN, BP: 142/ 81 MAP: 107. WILL CONTINUE TO MONITOR.
--- NOTE | 2018-08-10 14:52 | NUR ---
RT AT BEDSIDE, PULLING BACK TUBE TO BE AT 22 LL AT THIS TIME.
--- NOTE | 2018-08-10 15:06 | NUR ---
SPOKE WITH DR. BELLE AT THIS TIME AND ASKED IF PT'S FAMILY MEMBER HAD BEEN NOTIFIED OF CODE. STATES SHE HAS NOT CALLED YET AND WILL SHORTLY. WILL FOLLOW UP
--- NOTE | 2018-08-10 15:12 | NUR ---
115/66 (88). LEVOPHED TITRATED FROM 10 MCG/MIN TO 8 MCG/MIN.
--- NOTE | 2018-08-10 15:19 | NUR ---
BP 107/71 (85). LEVOPHED TITRATED FROM 8 MCG/MIN TO 6 MCG/MIN
--- NOTE | 2018-08-10 15:37 | NUR ---
DR. BELLE SPOKE WITH PT'S DAUGHTER GAUDENCIO IN REGARDS TO EVENTS OF CODE BLUE AND CURRENT STATUS. PER GAUDENCIO SHE WILL ARRIVE TO THE HOSPITAL IN ABOUT 30-40 MINS TO SEE HER MOTHER AND SPEAK WITH THE DOCTOR.
--- NOTE | 2018-08-10 16:10 | NUR ---
PT'S DAUGHTER AT BEDSIDE, DR. BELLE CALLED AND STATES SHE WILL BE DOWN TO SPEAK WITH DAUGHTER SHORTLY.
--- NOTE | 2018-08-10 16:15 | NUR ---
DAUGHTER AT BEDSIDE, ALL UPDATES PROVIDED. NO QUESTIONS AT THIS TIME.
--- NOTE | 2018-08-10 17:27 | NUR ---
NIBP 107/73 MAP 78, LEVO TITRATED TO 2 MCG/MIN.
--- NOTE | 2018-08-10 17:36 | NUR ---
NIBP 54/38 MAP 44. LEVOPHED TITRATED TO 4 MCG/MIN. WILL CONT TO MONITOR.
--- NOTE | 2018-08-10 17:46 | NUR ---
NIBP 70/45 MAP 55, LEVOPHED TITRATED TO 6MCG/MIN.
--- NOTE | 2018-08-10 18:01 | NUR ---
DECREASED FIO2 TO 50%.
--- NOTE | 2018-08-10 18:02 | NUR ---
DR. BELLE AND MYSELF IN QUIET ROOM SPEAKING WITH PT'S FAMILY IN REGARDS TO EVENTS THAT OCCURED TODAY WELL CODE STATUS. FAMILY TO DISCUSS AMONGST THEMSELVES. PENDING FAMILY DECISION. PRIMARY RN MADE AWARE.
--- NOTE | 2018-08-10 19:01 | NUR ---
DR ASENCIO AT BEDSIDE, ALL UPDATES GIVEN. DR ASENCIO AT BEDSIDE EDUCATING FAMILY ON PTS CONDITION
--- NOTE | 2018-08-10 19:14 | NUR ---
RECEIVED REPORT FROM FLORENTINO LYNNE. ALL QUESTION AND CONCERNS ADDRESSED. PT IN ICU BED 1 IN LOW FOWLERS POSITION. PT IS INTUBATED AND COMATOSE AT THIS TIME,GCS 3. PT IS ON VENT ON AC MODE, 50% FIO2, VT 400, RATE 22 AND PEEP 5. VS UNSTABLE AT THIS TIME WITH HR IN THE 160s, AND LEVOPHED AT 6MCG/MIN. IVs TO THE RT AC AND LT FOOT 20G, BOTH PATENT AND FLUSHING WELL. PT HAS AKA ON THE RT LEG AND WOUND ON HER COCCYX AREA. FAMILY AT BEDSIDE AND UPDATES GIVEN.
--- NOTE | 2018-08-10 19:40 | NUR ---
AMIOFARONE BOLUS STARTED AT THIS TIME
--- NOTE | 2018-08-10 19:57 | NUR ---
LAB AT BEDSIDE FOR BLOOD DRAW
--- NOTE | 2018-08-10 19:57 | NUR ---
PATIENT DESAT BETWEEN 84-86%. INCREASED FIO2 FROM 70% TO 100%. WILL CONTINUE TO MONITOR.
--- NOTE | 2018-08-10 20:00 | NUR ---
AMIODARONE DRIP STARTED AT THIS TIME @ 1MG/MIN.
--- NOTE | 2018-08-10 20:13 | NUR ---
FIO2 TITRATED UP FROM 70% TO 100%
--- NOTE | 2018-08-10 20:42 | NUR ---
20G IV STARTED IN LT CHEST WALL PATENT AND FLUSHING WELL. OGT INSERTED AND KUB ORDERED TO VERIFICATION
--- NOTE | 2018-08-10 21:03 | NUR ---
LEVOPHED DRIP TITRATED DOWN FROM 6MCG/MIN TO 5MCG/MIN BP 118/84 AND MAP 96.
--- NOTE | 2018-08-10 21:30 | NUR ---
HEPARIN BOLUS AND DRIP STARTED AT THIS TIME. BOLUSE 3900 UNIT AND DRIP @ 800 UNITS/HR
--- NOTE | 2018-08-10 23:37 | NUR ---
DR ENGLISH AT BEDSIDE, UPDATES GIVEN AND ORDERS RECEIVED ZYVOX 600MG IVPB Q12 COLOSTIN IVPB 35MG Q12
[2018-08-11] VITALS (16 sets, daily range): BP systolic 94–168; BP diastolic 50–105
--- NOTE | 2018-08-11 00:04 | NUR ---
RT AT BEDSIDE, TITRATED FIO2 DOWN FROM 100% TO 70%, PT SATTING 98%.
--- NOTE | 2018-08-11 00:04 | NUR ---
DECREASED FIO2 FROM 100% TO 70%. SPO2 MAINTAINED 99%
--- NOTE | 2018-08-11 00:12 | NUR ---
RT AT BEDSIDE FOR ABD DRAW
--- NOTE | 2018-08-11 00:47 | NUR ---
LEVOPHED TITRATED DOWN FROM 5MCG TO 4MCG, BP 120/68 AND MAP 89
--- NOTE | 2018-08-11 02:04 | NUR ---
AMIODARONE DRIP TITRATED DOWN FROM 1MG/MIN TO 0.5MG/MIN PER PROTOCOL AFTER 6HR AFTER INITAL DOSE.
--- NOTE | 2018-08-11 02:19 | NUR ---
DECREASED FIO2 FROM 70% TO 50%. SPO2 MAINTAINED AT 99%. WILL CONTINUE TO MONITOR.
--- NOTE | 2018-08-11 02:45 | NUR ---
LEVOPHED TITRATED DOWN FROM 4MCG/MIN TO 3MCG/MIN, BP 121/66 AND MAP 89
--- NOTE | 2018-08-11 03:48 | NUR ---
BIOLOGICAL AIDE AT BEDSIDE FOR BLOOD DRAW
--- NOTE | 2018-08-11 03:56 | NUR ---
PT NOW RESPONSIVE TO TOUCH GCS 6.
[2018-08-11 04:01] LABS: BASOPHIL % 0.1 % (0-2); PLATELET COUNT 393 x10^3mcL (130-400)
[2018-08-11 04:07] LABS: RED CELL DISTRIBUTION WIDTH 17.6 % (11.5-14.5)
[2018-08-11 04:29] LABS: CALCIUM 8.4 mg/dL (8.5-10.1); CARBON DIOXIDE 22.9 mmol/L (21-32); CREATININE SERUM 2.9 mg/dL (0.6-1.0)
[2018-08-11 04:57] LABS: POTASSIUM SERUM 2.8 mmol/L (3.5-5.1)
--- NOTE | 2018-08-11 05:14 | NUR ---
RT AT BEDSIDE FOR BLOOD DRAW
--- NOTE | 2018-08-11 05:22 | NUR ---
PTT >150, HEPARIN DRIP PLACED ON HOLD AT THIS TIME. PTT REDRAW AT 0730
--- NOTE | 2018-08-11 13:00 | NUR ---
Initial Nutrition Assessment: IC01/A CHRISTINA MUELLER IA HR Dx: Severe sepsis, non-STEMI, Hypokalemia PMHx: HTN, DM, ESRD on HD MWF, ischemic cardiomyopathy PSHx: Right AKA with subsequent revision surgery Labs: BG 234H, K 2.8L, CREAT 2.9H, AST 64H, ALT 10L, WBC 36.3H Meds: Colace, cordarone, D10%, Colistin, levophed, Procrit, renagel, Zofran, heaprin Diet: TF (NG) Glucerna 1.2 @ 40ml/hr, goal 60 ml/hr, freq of adv Q4H PO Intake: Ht: 152.4 cm ( 60") Wt: 69.1 kg (152#) BMI: 29.8 kg/m2 Bed scale: 153# IBW: 100# (45 kg) %IBW: 152 UBW: pt's family unaware Age: 52/F Food Allergies: Tuna oil Skin: wound to coccyx, AKA on R leg Sacha: 15 Edema: BUE GI: Last BM: 08/11 Trigger: admitted w/potential risk diagnosis, poor PO >3d Per H&P, Pt is a 52 year old female with PMH of DM, HTN, ESRD on HD MWF, ischemic cardiomyopathy presents from [facility] SNF with hypotension and hypoglycemia x 1 day. Pt was discharged to [facility] from [facility] on 08/06 after pt was admitted to [facility] with sepsis 2/2 right AK stump infection when pt underwent revision surgery with osteectom by Dr. Clemons. RDN Visit (08/11): Patient was intubated and on vent. FNS received consult for 'right AKA stump infection and sacral wound' on 08/10/18. Pt is receiving Glucerna @ 40 ml/hr at this time. Per FLORENTINO Osorio, pt was just started on tube feedings and first residual check will be done in noon. Per family, pt dis not have any diarrhea. Discussed recommendations with Dr. Garcia and she agreed to place the new diet order based on the new recommendations. Problem with: N/V/D/C: no (pt comatose) Problems with: Chewing/Swallowing: pt intubated at this time Current appetite: pt intubated and sedated so unable to access Recent wt change: pt's family was unaware therefore unable to access Vitamin/Supplement use: none Special diet at home: regular Physical activity: pt's family unaware Nutrition education given: not appropriate at this time as pt is comatose and intubated as well as on tube feeding. Food-drug interactions: Colace- high fiber w/3479-2747 ml fluids, Heparin- consistent vitamin K intake Education given: no, will be provided when PO intake resumes. Estimated Nutritional Needs Based on body weight 69.1 kg Energy: 0661-9282 vs 1375 kcal/d (25-30 kcal/kg vs The Paresh State Equation (PSU) 2003b) HD (overweight patient) Protein: 82-103 g/d (1.2-1.5 g/kg)- HD Fluid: per doctor as patient on HD Nutrition Diagnosis 1. Increased nutrient needs related to sepsis, sacral wound and increased metabolic demands as evidenced by WBC 36.6 and patient on hemodialysis. Intervention 1. Recommend changing tube feeding formula to Nepro with carbsteady 1.8 @ 20ml/hr, goal 45ml/hr since patient is on hemodialysis. Frequency of advancement 10ml Q4H. FWF (Per MD). This provides 1940 kcal and 87g protein. This would meet >90% of estimated calorie and protein needs of the patient. 2. Recommend Vitamin C supplement for wound healing. Monitor/Evaluate Goal: TF intake at least 75% of estimated needs Monitor: TF intake, Labs, GI function F/U in 2-3 days as high risk 08/13-
--- NOTE | 2018-08-11 13:00 | NUR ---
PTT 42.7. HEPARIN DRIP INTIITATED AT 800 UNITS. NEXT PTT AT 1700.
--- NOTE | 2018-08-11 18:18 | NUR ---
PT BS 133/ZERO COVERAGE
--- NOTE | 2018-08-11 19:15 | NUR ---
RECIEVED REPORT FROM FLORENTINO WHITNEY. POC DISCUSSED. NURSING UPDATES. RESUMED CARE OF PT. SEE SHIFT ASSESSMENT.
--- NOTE | 2018-08-11 20:00 | NUR ---
CONSENT RECIEVED FROM FOR PLACEMENT OF CENTRAL LINE. DISCUSSED RISKS BENEFITS AND PURPOSE.
--- NOTE | 2018-08-11 20:31 | NUR ---
DR ASENCIO @ BEDSIDE. NURSING UPDATES. POC DISCUSSED. LEVO TITRATED TO KEEP MAP < 100 FROM 5MCG/MIN TO 2 MCG/MIN. WILL CONT TO MONITOR.
--- NOTE | 2018-08-11 22:00 | NUR ---
PT DAUGHTER NOTIFIED GOING HOME FOR THE EVENING. LEFT INFORMATION TO CONTACT FOR ANYTHING THAT HAPPENS. SHE ALSO PROVIDES UPDATES TO THE FOR TRANSLATION. EFREN [phone]
--- NOTE | 2018-08-11 23:19 | NUR ---
LEVO TITRATED OFF TO MAINTAIN MAP PROTOCOL PER DR ASENCIO. PT BE 93/65(72). WILL CONT TO MONITOR.
[2018-08-12] VITALS (16 sets, daily range): BP systolic 65–149; BP diastolic 39–79
--- NOTE | 2018-08-12 00:02 | NUR ---
PT RESTING CALMLY IN BED. RESPONDS TO TACTILE STIMULUS. EYES REACTIVE TO LIGHT. WILL CONT TO MONITOR.
--- NOTE | 2018-08-12 00:15 | NUR ---
DR ENGLISH @ BEDSIDE. NURSING UD[PATES. POC DISCUSSED. AWAITING NEW ORDERS.
--- NOTE | 2018-08-12 01:36 | NUR ---
NOTIFIED BY RT O2 SATURATION NOW 45% DOWN FROM 50% ON AC MODE. PT TOLERATED WELL WILL CONT TO MONITOR.
[2018-08-12 03:00] LABS: BASOPHIL % 0.1 % (0-2); PLATELET COUNT 309 x10^3mcL (130-400)
--- NOTE | 2018-08-12 03:00 | NUR ---
PT RESTING CALMY IN BED. NO ACUTE CHANGES. WILL CONT TO MONITOR. NOTIFIED TO POST-PONE CENTRAL LINE INSERTION UNTIL THE MORNING PER PT SAFETY W/ ONLY ONE RESIDENT DOCTOR.
[2018-08-12 03:05] LABS: CALCIUM 8.5 mg/dL (8.5-10.1); CARBON DIOXIDE 22.1 mmol/L (21-32); CREATININE SERUM 3.5 mg/dL (0.6-1.0); POTASSIUM SERUM 3.1 mmol/L (3.5-5.1)
[2018-08-12 03:09] LABS: RED CELL DISTRIBUTION WIDTH 16.4 % (11.5-14.5)
[2018-08-12 03:10] LABS: rbc morphology (normal/abnorm) ABNORMAL (NORMAL)
--- NOTE | 2018-08-12 04:55 | NUR ---
NOTIFIED BY FLORENTINO STAHL OF PTT 22.6. PER HEPARIN PROTOCOL INFUSING PER IV HEPARIN 3900 UNITS AND INCREASED HEPARIN DRIP TO 1200 UNITS/HR.
--- NOTE | 2018-08-12 04:56 | NUR ---
NOTIFIED PER PHARMACY OF WBC 23.1 AND HGB 6.9. WILL ENDORSE TO ONCOMING RN AND DR FOR POSSIBLE BLOOD TRANSFUSION.
--- NOTE | 2018-08-12 05:55 | NUR ---
NOTIFIED PER PHARM WBC 23.1 AND HBG 6.7. NOTIFIED CHARGE NURSE MARIBETH AND ADVANCED MANUFACTURING VICE PRESIDENT DOC. AWAITING ORDERS.
--- NOTE | 2018-08-12 06:28 | NUR ---
DR BELLE NOTIIFIED OF HGB/HCT 6.09/19. AWAITIING ORDERS.
--- NOTE | 2018-08-12 07:15 | NUR ---
RECEIVED PT'S REPORT FROM LEAVING NURSE. PT IS INTUBATED, ON VENT AC MODE. O2 SAT 100%. PT OPEN EYES TO AUDITORY STIMULI, BUT NOT FOLLOW COMMAND. AV SHUNT ON LUE, BRUIT, THRILLS. FLEXISEAL RECTAL TUBE IN PLACE. PT'S R AKA. HEPARIN DRIP INFUSING AT 1200 UNITS/HR. AMIODARON INFUSING AT 0.5MG/MIN. WILL CONTINUE TO MONITOR.
--- NOTE | 2018-08-12 11:03 | NUR ---
GOT LAB REPORT PTT > 150, HOLD HEPARIN, AND ORDERED NEXT PTT DRAWN AT 1300PM. WOUND CARE NURSE AT BEDSIDE.
--- NOTE | 2018-08-12 11:07 | NUR ---
PATIENT'S HR IN 50'S. AMIODORONE DRIP TITRATED OFF FROM 0.5 MG/HR. PAGED DR BELLE AND MADE AWARE.
--- NOTE | 2018-08-12 13:16 | NUR ---
WOUND CARE EVALUATION NOTE: REASON FOR EVALUATION: RIGHT STUMP SURGICAL WOUND AND SACRALCOCCYX WOUNDS SKIN ASSESSMENT DONE WITH THIS 52 Y/O FEMALE PT READMITTED FROM SNF TO [facility] INITIAL DX OF SEPSIS. PAST MEDICAL HX INCLUDES DM, HTN, HLD. CKD WITH HD, RIGHT AKA AND CHRONIC WOUND PRESSURE ULCER INJURY TO SACRALCOCCYX, ALL INFORMATION OBTAINED FROM ADMISSION H&P. SKIN IS WARM AND DRY, RIGHT LE AKA S/P DEBRIDEMENT LAST WEEK. PLAN OF CARE DISCUSSED WITH PRIMARY RN. COMORBIDITIES RELATED TO DELAY HEALING AND FURTHER SKIN BREAKS: INFECTION, DM, LOW ALBUMIN LEVEL AND HOB ELEVATED THE MAJORY OF TIMES DUE TO MEDICAL REASONS. INTEGUMENTARY: -LEFT LATERAL FOOT 5TH DIGIT 1X1CM DRY BROWN SCAB, NICOLE WOUND SKIN INTACT -IAD TO RIGHT AND LEFT INNER BUTTOCKS EXTENDED TO R/L ISCHIUMS, MULTIPLE SKIN EROSIONS WITH LARGEST TO LEFT BUTTOCK 1.5X0.5CM, SUPERFICIAL DEPTH, WOUND BED SLIGHTLY YELLOW, MOIST NO ODOR PERIWOUND SKIN DENUDED, WITH REDNESS EXTENDED TO SACRALCOCCYX WOUND EDGE. -INFECTED PRESSURE ULCER INJURY UN-STAGEABLE TO SACRALCOCCYX,BUTTERFLY SHAPE 4X5.5CM WITH 100% BROWN COLOR TISSUE, CENTER OF WOUND BED,BONE OBSERVED SURROUNDING WITH YELLOW SLOUGH, UNDERMINING BETWEEN 11-1 O'CLOCK, MODERATE DRAINAGE,MILD ODOR,NICOLE-WOUND SKIN DENUDED SURROUNDING SKIN DTI INDICATED FURTHER DAMAGE. -RIGHT AKA STUMP SURGICAL WOUND S/P DEBRIDEMENT 16CM IN WIDTH WITH MULTIPLE TORRES IN PLACE,LATERAL STUMP SURGICAL DEBRIDEMENT WOUND 2X2.5X1.3 CM, WOUND BED 100 % PINK GRANULATING TISSUE, AREA MOIST, NO ODOR, NICOLE-WOUND SKIN INTACT. RECOMMENDATIONS: -KEEP SKIN DRY AND CLEAN AT ALL TIMES, PLEASE CHECK Q2H -APPLY Z GUARD TO R/L INNER BUTTOCK IAD BID AND PRN IS SOILING -CLEANSE RIGHT STUMP WOUND WITH WOUND CARE SOLUTION, PAT DRY, PACK WITH IODOFORM DRESSING AND COVER WITH DRY DRESSING QD AND PRN IF SOILING -CLEANSE SACRALCOCCYX WOUND WITH WOUND CARE SOLUTION, PAT DRY, PACK WOUND WITH CALCIUM ALGINATE DRESSING, APPLY Z-GUARD TO NICOLE WOUND SKIN AND COVER WITH OPTIFOAM DRESSING QD AND PRN IF SOILING -APPLY HEEL PROTECTOR TO LEFT HEEL AT ALL TIMES -OFFLOAD LEFT HEEL BY PLACING PILLOWS UNDER CALVES UNLESS OTHERWISE CONTRAINDICATED -PRESSURE REDISTUBUTION SURFACE THERAPY -TURN AND REPOSITION Q2H, OFFLOAD SACRALCOCCYX BY TURNING RIGHT AND LEFT -CONTINUE TO FOLLOW RD RECOMMENDATIONS PLEASE CONTACT WOUND CARE NURSE FOR ANY QUESTION AND CHANGE OF WOUND CONDITION.
--- NOTE | 2018-08-12 13:28 | NUR ---
DR. EVERETT AT BEDSIDE ASSESSED PT, AND ORDERED HD. CONFIRMED WITH DR. EVERETT THAT IT IS OK TO HOLD RANAGEL AT THIS TIME.
--- NOTE | 2018-08-12 14:05 | NUR ---
PT'S PTT 63.5 WITHIN THERAPEUTIC RANGE, ORDERED NEXT PTT DRAWN AT 1800PM. RESUMED PT'S HEPARIN DRIP ON 1000UNITS/HR. DR. DEVLIN AWARE AND AGREED. PT IS GOING TO HAVE HD TODAY.
--- NOTE | 2018-08-12 15:00 | NUR ---
PATIENT IN NEED OF BLOOD TRANSFUSION. CONSENT OBTAINED VIA TELEPHONE FROM PATIENT'S SISTER DUNIA COOPER, WITNESSED BY MYSELF AND PLACED IN PATIENT'S CHART.
--- NOTE | 2018-08-12 16:20 | NUR ---
HD NURSE START PT BLOOD TRANSFUSION DURING DIALYSIS. PT TOLERATE WELL AT THIS TIME.
--- NOTE | 2018-08-12 17:13 | NUR ---
DIALYSIS DONE AT BED SIDE, 2L OUT. BLOOD TRANSFUSION DONE AT 1630PM
--- NOTE | 2018-08-12 19:15 | NUR ---
REPORT RECIEVED FROM FLORENTINO ARREDONDO. ALL CONCERNS ADDRESSED. POC DISCUSSED. SEE SHIFT ASSESSMENT FOR ASSESSMENT.
--- NOTE | 2018-08-12 19:28 | NUR ---
PTT> 150, HOLD HEPARIN DRIP. NEXT PTT IS ORDERED AT 2100 PM.
--- NOTE | 2018-08-12 21:42 | NUR ---
DR ASENCIO @ BEDSIDE. NURSING UPDATES. POC DISCUSSED. AWAITING NEW ORDERS.
--- NOTE | 2018-08-12 22:00 | NUR ---
NOTIFIED PER FLORENTINO STAHL FROM LAB FOR PT PTT 53.0. RESUMED HEPARIN AT CURRENT RATE 1000UNIT/HR. WILL ORDER NEW PTT PROTOCOL @ 9790.
[2018-08-13] VITALS (18 sets, daily range): BP systolic 84–157; BP diastolic 47–104
--- NOTE | 2018-08-13 00:18 | NUR ---
PT W/ LOW BLOOD PRESSURE. TRIED SWITCHING BP CUFF FROM LOCATION LOW ARM AND LEG/UPP/LOW. TITRATED LEVO FROM OFF TO 1MCG/MIN. PT TOLERATED WELL. BP WENT FROM 56/36(40) TO 104/62(77). WILL CONT TO MONITOR.
--- NOTE | 2018-08-13 02:29 | NUR ---
PT W/ LOW BP. TITRATED LEVOPHED FROM OFF TO 1MCG/MIN. BP MAP <65 AND SYSTOLIC ABOVE 60. WILL CONT TO MONITOR.
--- NOTE | 2018-08-13 02:47 | NUR ---
TRANSFER STATION ATTENDANT @ BEDSIDE FOR PTT DRAW.
[2018-08-13 03:09] LABS: PLATELET COUNT 279 x10^3mcL (130-400)
[2018-08-13 03:14] LABS: RED CELL DISTRIBUTION WIDTH 16.4 % (11.5-14.5)
[2018-08-13 03:22] LABS: CALCIUM 9.6 mg/dL (8.5-10.1); CARBON DIOXIDE 21.9 mmol/L (21-32); CREATININE SERUM 3.8 mg/dL (0.6-1.0); POTASSIUM SERUM 3.5 mmol/L (3.5-5.1)
--- NOTE | 2018-08-13 03:22 | NUR ---
NOTIFIED PER LAB WBC 33.2. WILL ENDORSE.
[2018-08-13 03:23] LABS: BAND NEUTROPHIL 5 % (0-10); BASOPHIL 0 % (0-2); MONOCYTE 6 % (0-7); PLATELET MORPHOLOGY PLATELETS NORMAL; SEGMENTED NEUTROPHILS 84 % (37-75); rbc morphology (normal/abnorm) ABNORMAL (NORMAL)
--- NOTE | 2018-08-13 03:30 | NUR ---
TITRATED LEVO OFF FOR BP WNL. WILL CONT TO MONITOR
--- NOTE | 2018-08-13 03:59 | NUR ---
NOTIFIED PER PHARMACY PTT 107.6. DECREASED HEPARIN BY 300U/HR TO 700U/HR PER HEPARIN PROTOCOL.
--- NOTE | 2018-08-13 07:15 | NUR ---
PUPILS FIXED. NO EYE CONTACT OR RESPONSE TO VERBAL. ALOC. ON VENT.RT PROTOCOL. FAINT RHONCI. ORAL GASTRIC TUBE FEDIDNG GLUCERNA 50 CC HOUR. NO RESIDUAL. EDEMA TO ALL EXTREMITIES. DRESSING TO RT STUMP SLIGHTLY SOILED. FLEXISEAL DRAINING GREENISH GRAINY LIQUID. ANURIC PT IS HD PT. NS INFUSING 10 CC HOUR. HEPARIN INFUSING 700 UNITS Q 1 HOUR. TOTAL CARE. REPOSITIONED WITH PILLOWS. BED INLOW POSITION. HOB SLIGHLTY ELEVATED.
--- NOTE | 2018-08-13 09:51 | NUR ---
REMOVED DRESSING TO BLISTER LEFT ANKLE CLEANSED W NS AND RECOVERED WITH VERSATEL AND BORDERED GAUZE. REMOVED DRESSING TO SACRUM BEEFY RED. CLEANSED WITH WOUND CLEANSER PACKED WITH ALGINATE COVERED WITH ABD PAD. REMOVED DRESSING TO RT AKA STUMP. WOUND APPEARS CLEAN, TORRES INPLACE. REMOVED EXSISTING PACKING STRIP SPRAYED WITH WOUND CLEANSER AND REPACKED WITH IODOFORM GAUZE AND COVERED WITH BORDERED GAUZE. CHANGED LINENS AND REPOSITIONED WITH PILLOWS.
--- NOTE | 2018-08-13 10:27 | NUR ---
STOPPED HEPARIN INFUSION ORDERED.
--- NOTE | 2018-08-13 11:50 | NUR ---
Follow-up Nutrition Assessment: IC01/A CHRISTINA MUELLER FU HR Dx: Severe sepsis, non-STEMI, Hypokalemia PMHx: HTN, DM, ESRD on HD MWF, ischemic cardiomyopathy Labs: (08/13) BG 179H, BUN 22H, CREAT 3.8H, AST 64H, ALT 10L, WBC 33.2H Meds: Colace, cordarone, D10%, Colistin, lasix, Procrit, renagel, Zofran, heaprin Diet: TF (NG) Glucerna 1.2 @ 40ml/hr, goal 60 ml/hr, freq of adv Q4H PO Intake: NPO Weights: (08/13) 69 kg, (08/12) 67.5 kg, (08/11) 69.1 kg (weight fluctuation possibly d/t HD) Skin: wound to coccyx, AKA on R leg, fluid filled blister to L ankle Sacha: 18 I/Os: 5752/4150 Edema: edema to extremities GI: Flexiseal in place, greenish grainy output Last BM: RDN Visit (08/13): Pt was on ventilator and Glucerna 1.2 was running @ 50 ml/hr. FWF 50ml Q4H. Per RN Denae, pt is tolerating tube feedings with no residuals. Discussed recommendations with Dr. Garcia. She agreed with it and will place a new tube feeding order. Estimated Nutritional Needs Based on body weight 69.1 kg Energy: 9573-4834 vs 1375 kcal/d (25-30 kcal/kg vs The Paresh State Equation (PSU) 2003b) HD (overweight patient) Protein: 82-103 g/d (1.2-1.5 g/kg)- HD Fluid: per doctor as patient on HD Nutrition Diagnosis 1. Increased nutrient needs related to sepsis, sacral wound and increased metabolic demands as evidenced by WBC 36.6 and patient on hemodialysis. (ongoing) Intervention 1. Recommend changing tube feeding formula to Nepro with carbsteady 1.8 @ 20ml/hr, goal 45ml/hr since patient is on hemodialysis. Frequency of advancement 10ml Q4H. FWF (Per MD). This provides 1940 kcal and 87g protein. This would meet >90% of estimated calorie and protein needs of the patient. 2. Recommend Vitamin C supplement for wound healing. Monitor/Evaluate Goal: Have pt meet at least 75% of estimated needs Monitor: TF intake/tolerance, Labs, GI function F/U in 2-3 days as high risk 08/15-
--- NOTE | 2018-08-13 12:31 | NUR ---
PT REMAINS VERY WEAK,OBTUNDED, TOTAL CARE. FAMILY AT BEDSIDE. SEEN BY RT. HEPARIN DC'D. GT FEED INCREASED TO 60 CC HOUR FOR GOAL OF 60. 1 CC RESIDUAL REPLACED. FI02 35%. HOB ELEVATED 30 DEGREES.
--- NOTE | 2018-08-13 16:00 | NUR ---
NO CHANGES. CONTINUES ON VENT AND RT PROTOCOL. TOTAL CARE. AMMIDODORONE INFUSING FOR ELEVATED HR. CURRENT HR 77. NS 10 CC HOUR. MULTIPLE FAMILY MEMBERS IN TO SEE PT. STARTED ON NEPHRO GT FEED AT 20 CC HOUR FOR GOAL OF 45. EXTREMITIES EDEMATOUS. BED IN LOW POSITION.
--- NOTE | 2018-08-13 17:29 | NUR ---
TUBE FEEDING CHANGED TO NEPHRO. STARTED AT 20 CC HOUR. 150 CC H20 FREE WATER FLUSH Q 4 HOURS.
--- NOTE | 2018-08-13 19:20 | NUR ---
RECEIVED REPORT FROM LEW GOOD. QUESTIONS ANSWERED AND ADDRESSED. WILL RESUME CARE.
--- NOTE | 2018-08-13 19:49 | NUR ---
DRESSING SOILED TO SACRUM. CHANGED DRESSING AND SOILED PADS. REPOSITIONED. ENDORSED TO NOC SHIFT. CONTINUES ON MEREPENEM,ZYVOX AND COLISTIN IV ABX. ON AMMIODORONE DRIP. NEPHRO 20 CC HOUR. RT PROTOCOL, ON VENT. FLEXISEAL WITH BROWNISH GRAINY STOOL OUTPUT. STUMP DRESSING CDI.
--- NOTE | 2018-08-13 20:28 | NUR ---
PT BP OF 55/30 (37). INITIATED LEVOPHED @ 2MCG/MIN TO ACHIEVE MAP OF 65>. WILL CONT TO MONITOR.
--- NOTE | 2018-08-13 20:42 | NUR ---
PT BP OF 129/73 (93). LEVOPHED TITRATED OFF. WILL CONT TO MONITOR.
--- NOTE | 2018-08-13 22:10 | NUR ---
TITRATED AMIODARONE TO 0.5 MG/MIN PER DR'S ORDERS. SEE EMAR FOR DETAILS. PT'S HR = 102. WILL CONT TO MONITOR.
--- NOTE | 2018-08-13 23:00 | NUR ---
TUBE FEEDING TITRATED TO 30ML/HR. GRV = 5. TOLERATING WELL. WILL CONT TO MONITOR.
[2018-08-14] VITALS (16 sets, daily range): BP systolic 92–143; BP diastolic 45–80
--- NOTE | 2018-08-14 01:47 | NUR ---
PT'S FLEXISEAL LEAKING BROWN WATERY STOOL. PT CLEANED, COMPLETE BED BATH GIVEN, AND LINENS CHANGED. SACRALCOCCYX DRESSING CLEANED AND CHANGED PER WOUND CARE NURSE'S ORDERS. PT DESATTED DURING POSITION CHANGED TO LOW 60'S AND HR DROPPED TO 40'S. PT TURNED BACK AND HR AND O2 SAT BEGAN TO INCREASE. PT TURNED AND POSITIONED ON R SIDE AND LLE OFFLOADED WITH PILLOWS. HEELBOOT APPLIED TO LLE. X3 SIDE RAILS UP, BED IN LOWEST POSITION, HOB 30 DEGREES PER VAP PROTOCOL. WILL CONT TO MONITOR.
--- NOTE | 2018-08-14 01:53 | NUR ---
DC'D R AC PIV DUE TO INFILTRATION. SUCCESSFULLY REMOVED IV. GAUZE APPLIED TO SITE WITH MINIMAL BLEEDING NOTED.
--- NOTE | 2018-08-14 06:54 | NUR ---
DR. MARSHALL AT BEDSIDE. UPDATES PROVIDED. CPAP TRIAL TODAY. NO NEW ORDERS AT THIS TIME. WILL CONT TO MONITOR
[2018-08-14 07:19] LABS: CALCIUM 8.9 mg/dL (8.5-10.1); CARBON DIOXIDE 20.9 mmol/L (21-32); POTASSIUM SERUM 3.2 mmol/L (3.5-5.1)
[2018-08-14 07:28] LABS: CREATININE SERUM 4.5 mg/dL (0.6-1.0)
--- NOTE | 2018-08-14 07:30 | NUR ---
PATIENT IS IN BED, BED IS TO THE LOWEST POSITION. PATIENT IS INTUBATED, 7.5 ETT, 21 LL. AND ON AC MODE AT A RATE OF 22, TIDAL VOLUME OF 400, FIO2 OF 35%, AND PEEP OF 5. PATIENT IS BREATHING ADEQUATELY AND THERE ARE NO SIGNS OF RESPIRATORY DISTRESS. KEY RINGER IN PLACE, AFIB. PATIENT IS ON TUBE FEEDINGS INFUSING AT 45 ML/HR WITH 150 FWF Q4, PATIENT IS ON NS INFUSING AT 10 ML/HR AND AMNIODARONE AT 0.5MG/MIN. PATIENT HAS R ABOVE THE KNEE AMPUTATION. PATIENT HAS FLEX BOOT NOTED TO LFOOT. PATIENT IS OFF LOADED WITH PILLOWS, PATIENT STABLE, WILL CONTINUE TO MONITOR.
[2018-08-14 08:01] LABS: PLATELET COUNT 237 x10^3mcL (130-400)
[2018-08-14 08:02] LABS: RED CELL DISTRIBUTION WIDTH 16.4 % (11.5-14.5)
--- NOTE | 2018-08-14 08:22 | NUR ---
CPAP AT THIS TIME, PER RT. WILL CONTINUE TO MONITOR.
--- NOTE | 2018-08-14 11:44 | NUR ---
PATIENT OFF OF CPAP AT THIS TIME. PATIENT TO START HEMODYALISIS SOON. PATIENT STABLE WILL CONTUNUE TO MONITOR.
[2018-08-14 12:18] LABS: BAND NEUTROPHIL 6 % (0-10); MONOCYTE 6 % (0-7); SEGMENTED NEUTROPHILS 83 % (37-75); rbc morphology (normal/abnorm) ABNORMAL (NORMAL)
[2018-08-14 12:19] LABS: PLATELET MORPHOLOGY LARGE PLATELET SEEN
--- NOTE | 2018-08-14 14:39 | NUR ---
RECIEVED POSITIVE WOUND CULTURE OF WOUND TO RIGHT STUMP, RESULTS RELAYED TO DR. THORPE. AWAITING FOR FURTHER ORDERS. PT PLACED ON CONTACT ISOLATION. PRIMARY RN AWARE OF THE ABOVE.
--- NOTE | 2018-08-14 15:24 | NUR ---
DIALYSIS DONE AT THIS TIME. 1.7 L REMOVED PER COMMUNITY RELATIONS MANAGER.
--- NOTE | 2018-08-14 17:13 | NUR ---
DR ENGLISH AT BEDSIDE, ALL UPDATES PROVIDED. NO FURTHER ORDERS AT THIS TIME.
--- NOTE | 2018-08-14 18:09 | NUR ---
PATIENT REPOSITIONED, CLEANSED, LINENS CHANGED. NOTICED PURPLE DISCOLORATION TO R UPPER BACK WITH FLUID FILLED BLISTER. UP AND DOWN NOTED 7.5 CM AND LEFT TO RIGHT 2.5 CM. PICTURE TAKEN AND PLACED IN PATIENTS CHART.
--- NOTE | 2018-08-14 19:14 | NUR ---
REPORT GIVEN TO FLORENTINO NEELY, ALL QUESTIONS ANSWERED.
--- NOTE | 2018-08-14 19:25 | NUR ---
REC'D REPORT FROM MAGED GOOD TO ASSUME CARE. PT INTUBATED WITH NO SEDATION. OPENS EYES SPONTANEOUSLY. WITHDRAWS TO PAIN. PUPILS UNEQUAL, LEFT PUPIL 5MM FIXED, RIGHT PUPIL 4 MM FIXED. 7.5 ETT SECURED AT 21 CM LL. TRACHEA MIDLINE. NO JVD NOTED. OGT INTACT AND SECURED. VAP CARE PROVIDED PER PROTOCOL. ETT TO VENT: AC MODE RATE 22, TV 400, PEEP 5, FIO2 35%. CHEST RISE EQUAL AND SYMMETRICAL. LUNG SOUNDS COARSE CRACKLES/RHONCHI BOBO. RESPS E/U. PRINT BINDING WORKER IN PLACE, BP 132/60 MAP, AFIB HR 88. CHEST WALL STABLE. PULSES PALPABLE X3. CAP REFILL < 3 SECS. 1+ PITTING EDEMA BUE/LLE. 2 IV SITES TO UPPER CHEST AREA AND PRINCE INTACT AND PATENT. NO S/SX OF INFILTRATION NOTED. IVF NS INFUSING @ 10ML/HR. PT BEDBOUD. TURNED AND REPOSITIONED Q2H FOR SKIN MANAGEMENT. FLEXIBOOT TO LLE. ISOGEL MATTRESS IN PLACE. TF NEPHRO INFUSING @ 45ML/HR, FWF 150 ML Q4H, GRV=5ML REPLACED. NO EPISODES OF N/V NOTED. ABD FLAT, SOFT, NONTENDER TO TOUCH. BOWEL SOUNDS ACTIVE. FLEXISEAL IN PLACE DRAINING VIA GRAVITY LOOSE BROWN STOOL. PT ANURIC ON HEMODIALYSIS MWF. YENY FISTULA NOTED WITH (+) BRUIT/THRILL. LAST HD 08/14 WITH 1.7 L OUT. SKIN WARM DRY TO TOUCH. SKIN COLOR BENTLEY/BROWN CONSISTENT WITH ETHNICITY. R LIMB AMPUTATION DSG CDI ELEVATED ON PILLOW, LLE BLISTER DSG CDI, R UPPER BACK SKIN TEAR DSG CDI, OPEN ULCER TO COCCYX AREA DSG CDI. PT KEPT CLEAN AND DRY. POSITIVE FAMILY SUPPORT AT BEDSIDE. ALL NEEDS MET AT THIS TIME. WILL CONTINUE TO MONITOR.
--- NOTE | 2018-08-14 21:45 | NUR ---
FULL BED BATH PROVIDED. FLEXISEAL NOTED WITH SMALL AMT OF LEAKING D/T BEING KINKED. GOOD NICOLE CARE PROVIDED. WOUND CARE PROVIDED TO SACRAL, LEFT LOWER LEG, AND RIGHT KNEE AMPUTATION. PT REPOSITIONED AT THIS TIME.
[2018-08-15] VITALS (17 sets, daily range): BP systolic 106–175; BP diastolic 50–107
--- NOTE | 2018-08-15 03:30 | NUR ---
PT TAKEN TO CT VIA GUERNY ACCOMPANIED BY RT AND SHELLFISH WEIGHER. PT TRANSFERRED BACK SAFELY WITH NO ADVERSE EVENTS.
[2018-08-15 05:59] LABS: PLATELET COUNT 201 x10^3mcL (130-400)
[2018-08-15 06:08] LABS: RED CELL DISTRIBUTION WIDTH 16.4 % (11.5-14.5)
[2018-08-15 06:24] LABS: MONOCYTE 4 % (0-7); SEGMENTED NEUTROPHILS 93 % (37-75)
[2018-08-15 06:26] LABS: rbc morphology (normal/abnorm) ABNORMAL (NORMAL); schistocyte (helmet cell) 1+
[2018-08-15 06:27] LABS: PLATELET MORPHOLOGY PLATELETS NORMAL
[2018-08-15 06:31] LABS: CALCIUM 9.1 mg/dL (8.5-10.1); CARBON DIOXIDE 27.3 mmol/L (21-32); CREATININE SERUM 3.1 mg/dL (0.6-1.0); MAGNESIUM 1.7 mg/dL (1.8-2.4)
[2018-08-15 06:34] LABS: POTASSIUM SERUM 2.3 mmol/L (3.5-5.1)
--- NOTE | 2018-08-15 06:50 | NUR ---
REPORT K+ 2.[address] THORPE, AWAITING FOR FURTHER ORDERS.
--- NOTE | 2018-08-15 07:15 | NUR ---
PATIENT IN BED, BED TO THE LOWEST POSITION. PATIENT IS INTUBATED ON AC MODE AT A RATE OF 22, TIDAL VOLUME OF 400, FIO2 OF 35% AND PEEP OF 5. PATIENT IS BREATHING ADEQUATELY AND THERE ARE NO SIGNS OF RESPIRATORY DISTRESS. GANG SAWYER IN PLACE, AFIB. PATIENT IS ON NORMAL SALINE INFUSING AT 10 ML/HR. PATIENT HAS 2 IVS NOTED TO CHEST AND ONE NOTED TO R UPPER ARM. ABD IS SOFT AND FLAT. BUE AND BLE TRACE EDEMA NOTED. PATIENT HAS A FLEXISEAL DRAINING VIA GRAVITY. STOOL IS LOOSE AND GREEN IN COLOR. PATIENT IS ANURIC, HEMODIALYSIS PATIENT. PATIENT HAS RIGHT ABOVE THE KNEE AMPUTATION NOTED, OFFLOADED WITH PILLOW. FLEX BOOT NOTED TO L LEG. PATIENT HAS HEEL OFF LOADED WITH PILLOW. PATIENT STABLE, WILL CONTINUE TO MONITOR.
--- NOTE | 2018-08-15 07:37 | NUR ---
DR MARSHALL AT BEDSIDE, ALL UPDATES GIVEN, NO FURTHER ORDERS AT THIS TIME.
--- NOTE | 2018-08-15 08:45 | NUR ---
PER DR MARSHALL, PHOSPHORUS ON PATIENT IS 2.0, NOTIFY RENAL DR AND ASK FOR PHOSPHORUS, POTASSIUM ORDER.
--- NOTE | 2018-08-15 08:45 | NUR ---
PER DR MARSHALL, PHOSPORUS ON PATIENT IS 2.0, ASK RENAL DR IF THEY CAN ADD PHOSPHORUS.
--- NOTE | 2018-08-15 08:46 | NUR ---
RENAL PAGED AT THIS TIME.
--- NOTE | 2018-08-15 08:47 | NUR ---
CPAP AT THIS TIME.
--- NOTE | 2018-08-15 08:49 | NUR ---
DR PEREZ CALLED AT THIS TIME AND WOULD LIKE 30OF K PHOS AND 40 KCL A RIDER.
--- NOTE | 2018-08-15 08:51 | NUR ---
PATIENT STABLE AT THIS TIME, HR: 89. WILL CONTINUE TO MONITOR.
--- NOTE | 2018-08-15 08:51 | NUR ---
PATIENT OFF OF CPAP, HR UP TO 135. AFIB, RVR.
--- NOTE | 2018-08-15 09:34 | NUR ---
PATIENT REPOSITIONED AT THIS TIME. PT STABLE, WILL CONTINUE TO MONITOR.
--- NOTE | 2018-08-15 13:37 | NUR ---
PATIENT REPOSITIONED AT THIS TIME. FLEXISEAL LEAKING. LINENS CHANGED, PATIENT CLEANSED. SKIN ASSESSED. NO NEW WOUNDS NOTED. WILL CONTINUE TO MONITOR.
--- NOTE | 2018-08-15 14:42 | NUR ---
DR KEITA AT BEDSIDE, ALL UPDATES GIVEN, NO FURTHER ORDERS AT THIS TIME.
--- NOTE | 2018-08-15 15:13 | NUR ---
DR PEREZ AT BEDSIDE, ASSESSING PATIENT. PER DR PEREZ, LOWER FWF TO 50, Q6. ALSO DIALYSIS FOR TOMORROW. NO FURTHER ORDERS. WILL CONTINUE TO MONITOR.
--- NOTE | 2018-08-15 16:10 | NUR ---
PATIENT WAS MAKING A GARGILING SOUND, RT PAGED AT THIS TIME. PATIENTS VITALS STABLE, WILL CONTINUE TO MONITOR.
--- NOTE | 2018-08-15 16:49 | NUR ---
PER RT, CUFF WAS NOT INFLATING, BUT PATIENT SATURATION IS OK, WILL CONTINUE TO MONITOR.
--- NOTE | 2018-08-15 19:04 | NUR ---
REPORT GIVEN TO FLORENTINO NEELY. ALL QUESTIONS ANSWERED.
--- NOTE | 2018-08-15 19:25 | NUR ---
REC'D REPORT FROM [facility] TO ASSUME CARE. PT INTUBATED WITH NO SEDATION. OPENS EYES SPONTANEOUSLY. WITHDRAWS TO PAIN. PUPILS UNEQUAL, LEFT PUPIL 5MM FIXED, RIGHT PUPIL 4 MM FIXED. 7.5 ETT SECURED AT 21 [address]. TRACHEA MIDLINE. NO JVD NOTED. OGT INTACT AND SECURED. VAP CARE PROVIDED PER PROTOCOL. ETT TO VENT: AC MODE RATE 22, TV 400, PEEP 5, FIO2 35%. CHEST RISE EQUAL AND SYMMETRICAL. LUNG SOUNDS COARSE CRACKLES/RHONCHI BOBO. RESPS E/U. CLAIM PROFESSIONAL IN PLACE, BP 132/60 MAP, AFIB HR 88. CHEST WALL STABLE. PULSES PALPABLE X3. CAP REFILL < 3 SECS. 1+ PITTING EDEMA BUE/LLE. 2 IV SITES TO UPPER CHEST AREA AND PRINCE INTACT AND PATENT. NO S/SX OF INFILTRATION NOTED. IVF NS INFUSING @ 10ML/HR. PT BEDBOUD. TURNED AND REPOSITIONED Q2H FOR SKIN MANAGEMENT. FLEXIBOOT TO LLE. ISOGEL MATTRESS IN PLACE. TF NEPHRO INFUSING @ 45ML/HR, FWF 150 ML Q4H, GRV=5ML REPLACED. NO EPISODES OF N/V NOTED. ABD FLAT, SOFT, NONTENDER TO TOUCH. BOWEL SOUNDS ACTIVE. FLEXISEAL IN PLACE DRAINING VIA GRAVITY LOOSE BROWN STOOL. PT ANURIC ON HEMODIALYSIS MWF. YENY FISTULA NOTED WITH (+) BRUIT/THRILL. LAST HD 08/14 WITH 1.7 L OUT. SKIN WARM DRY TO TOUCH. SKIN COLOR BENTLEY/BROWN CONSISTENT WITH ETHNICITY. R LIMB AMPUTATION DSG CDI ELEVATED ON PILLOW, LLE BLISTER DSG CDI, R UPPER BACK SKIN TEAR DSG CDI, OPEN ULCER TO COCCYX AREA DSG CDI. PT KEPT CLEAN AND DRY. POSITIVE FAMILY SUPPORT AT BEDSIDE. WILL CONTINUE TO MONITOR.
--- NOTE | 2018-08-15 21:30 | NUR ---
PTS FLEXISEAL SEEN OUT. GOOD NICOLE CARE PROVIDED. ALL LINENS CHANGED. NEW FLEXISEAL INSERTED, DRAINING WELL VIA GRAVITY. TX PROVIDED TO ALL WOUNDS, ALL DSGS CHANGED, WOUND PHOTO DOCUMENTATIONS PLACED IN CHART.
[2018-08-16] VITALS (10 sets, daily range): BP systolic 80–114; BP diastolic 34–77; Ht 152.4 cm; Wt 65.9 kg
--- NOTE | 2018-08-16 00:42 | NUR ---
DR ENGLISH AT BEDSIDE, MADE AWARE REGARDING MERREM IV ATB PENDING D/T CROSS ALLERGY TO PCN AND DR CHAIREZ'S CONCERNS REGARDING PT RESISTANT TO CROMDR. DR ENGLISH STATES CONTINUE MERREM, MERREM IS BEING USED SYNERGISTIC MED TO COLISTIN IV MED. PHARMACY CALLED AND MADE AWARE.
[2018-08-16 05:39] LABS: PLATELET COUNT 206 x10^3mcL (130-400)
[2018-08-16 05:43] LABS: RED CELL DISTRIBUTION WIDTH 16.3 % (11.5-14.5)
[2018-08-16 05:44] LABS: MONOCYTE 4 % (0-7); SEGMENTED NEUTROPHILS 93 % (37-75); rbc morphology (normal/abnorm) ABNORMAL (NORMAL)
[2018-08-16 05:45] LABS: PLATELET MORPHOLOGY PLATELETS NORMAL; schistocyte (helmet cell) 1+
[2018-08-16 05:51] LABS: CALCIUM 9.5 mg/dL (8.5-10.1); CARBON DIOXIDE 22.6 mmol/L (21-32); CREATININE SERUM 3.6 mg/dL (0.6-1.0); MAGNESIUM 2.1 mg/dL (1.8-2.4); PHOSPHOROUS 3.6 mg/dL (2.5-4.9)
[2018-08-16 05:53] LABS: POTASSIUM SERUM 2.7 mmol/L (3.5-5.1)
--- NOTE | 2018-08-16 06:10 | NUR ---
REPORTED ABNORMAL LAB K+ 2.7, ELEVATED WBC TO DR THOMPSON, AWAITING FOR FURTHER ORDERS.
--- NOTE | 2018-08-16 06:11 | NUR ---
PTS FLEXISEAL LEAKED, PT CLEANED AND GOOD NICOLE CARE PROVIDED, DSG CHANGE PROVIDED. REPOSITIONED AT THIS TIME.
--- NOTE | 2018-08-16 08:00 | NUR ---
INITIAL SHIFT ASSESSMENT DONE (SEE ASSESSMENT PART). OBTUNDED. OPENING EYES SPONTANEOUSLY BUT NOT FOLLOWING COMMAND. NO SIGNS OF PAIN OR AGITATION NOTED. ON VENTILATOR, TOLERATING CURRENT SETTINGS WELL. O2 SAT 99-100%. A-FIB ON MONITOR. SBP IN 80-90, ROOM SERVICE WAITER/WAITRESS BONITA MADE AWARE. ON TUBE FEEDING VIA OGT, TOLERATING WELL. NO RESIDUALS NOTED. FLEXISEAL PATENT, INTACT, AND DRAINING LOOSE STOOLS TO GRAVITY BAG. LEFT UPPER ARM AV SHUNT POSITIVE FOR BRUIT AND THRILLS. DRESSING ON RIGHT AKA CDI. NOTED MULTIPLE BLISTERS IN BUE AND BLE WITH DRESSINGS IN PLACED. HOB ELEVATED. UPDATED OF PLAN OF CARE. WILL CONTINUE TO MONITOR.
--- NOTE | 2018-08-16 08:05 | NUR ---
NIBP 78/48, MAP 56. DR. BELLE PAGED AT THIS TIME. WAIT FOR CALL BACK.
--- NOTE | 2018-08-16 08:52 | NUR ---
PLACED PT ON CPAP +5 WITH PSV +12 AND FIO2 35%.
--- NOTE | 2018-08-16 09:36 | NUR ---
PATIENT ROUNDS WITH DR. CHAIREZ AND RESIDENTS. CHARGE NURSE AND PRIMARY NURSE AT BEDSIDE. UPDATES PROVIDED AND POC DISCUSSED.
--- NOTE | 2018-08-16 10:00 | NUR ---
RESTING IN BED. NO SIGNS OF PAIN OR AGITATION. TOLERATING CPAP WELL. O2 SAT 99-100%. A-FIB ON MONITOR. SBP IN 87-90'S. NO ECTOPY NOTED. HOB ELEVATED. WILL CONTINUE TO MONITOR.
--- NOTE | 2018-08-16 11:00 | NUR ---
TWO FAMILY MEMBERS ARE IN THE ROOM. UPDATED OF STATUS AND PLAN OF CARE.
--- NOTE | 2018-08-16 11:25 | NUR ---
SBP IN 80'S-90'S. LEVOPHED DRIP STARTED AT 5 MCG/MIN. HD RN IS IN THE ROOM TO DO HEMODIALYSIS TO THE PATIENT. DR PEREZ IS ALSO IN THE ROOM. UPDATED OF STATUS. MD TALK TO HD RN. WILL CONTINUE TO MONITOR.
--- NOTE | 2018-08-16 11:30 | NUR ---
HD FLORENTINO MILLER STARTED HEMODIALYSIS TO THE PATIENT AT THIS TIME. WILL CONTINUE TO MONITOR.
--- NOTE | 2018-08-16 12:00 | NUR ---
REASSESSMENT DONE. NEURO STATUS UNCHANGED. NO SIGNS OF PAIN OR AGITATION NOTED. TOLERATING CPAP WELL. O2 SAT 100%. A-FIB ON MONITOR. SBP IN 100'S-160'S. NO ECTOPY NOTED. TOLERATING TUBE FEEDING WELL. NO RESIDUALS NOTED. HEMODIALYSIS GOING-ON, TOLERATING WELL. HOB ELEVATED. UPDATED OF PLAN OF CARE. WILL CONTINUE TO MONITOR.
--- NOTE | 2018-08-16 12:47 | NUR ---
SBP IN 50'S. LEVOPHED DRIP INCREASE TO 10 MCG/MIN. MANAGER PHOTO BONITA MADE AWARE. HD RN ANGELA IS ALSO AWARE. WILL CONTINUE TO MONITOR.
--- NOTE | 2018-08-16 13:07 | NUR ---
DR MARSHALL IS IN THE ROOM. UPDATED OF STATUS. PUT PATIENT BACK ON AC MODE. RT SIMEON IS AWARE. WILL CONTINUE TO MONITOR.
--- NOTE | 2018-08-16 13:15 | NUR ---
BECOMES RESTLESS AT THIS TIME. GIVEN MORPHINE SULFATE IVP BY INFECTION CONTROL NURSE LORI.
--- NOTE | 2018-08-16 13:50 | NUR ---
Follow-up Nutrition Assessment: IC01/A CHRISTINA MUELLER FU HR Dx: Severe sepsis, non-STEMI, Hypokalemia PMHx: HTN, DM, ESRD on HD MWF, ischemic cardiomyopathy Labs: (08/16) K 2.7L,BUN 34H, CREAT 3.6H, AST 64H, ALT 10L, WBC 28.7H Meds: Colace, cordarone, D10%, Lactinex, merrem, Procrit, Zofran, heparin Diet: TF (gastrostomy tube) Nepro 1.8 @ 20ml/hr, goal 45 ml/hr, FWF 50 cc Q6H PO Intake: NPO Weights: (08/16) 65.9 kg, (08/13) 69 kg, (08/12) 67.5 kg, (weight fluctuation possibly d/t HD) Skin: Multiple blisters on BUE and BLE, unstageable ulcer on coccyx Sacha: 11 I/Os: 5752/4150 Edema: edematous BUE 3+ , pitting LLE +1, Right AKA GI: Flexiseal in place Last BM: 08/16 RDN Visit (08/16): Pt was on ventilator and receiving dialysis. (OGT) Nepro 1.8 was running @ 45ml/hr. FWF 50ml Q6H. Per FLORENTINO Woody, pt does not have any residuals however she is having loose stools. Tube feeding bag was not labeled. FLORENTINO Woody was informed. Per Progress note (08/16), Pt failed weaning trials yesterday, still intubated. Estimated Nutritional Needs Based on body weight 69.1 kg Energy: 6844-5957 vs 1375 kcal/d (25-30 kcal/kg vs [employer] [place] [employer] Equation (PSU) 2003b) HD (overweight patient) Protein: 82-103 g/d (1.2-1.5 g/kg)- HD Fluid: per doctor as patient on HD Nutrition Diagnosis 1. Increased nutrient needs related to sepsis, sacral wound and increased metabolic demands as evidenced by WBC 28.7 and patient on hemodialysis. (ongoing) Intervention 1. Recommend continuing Nepro with carbsteady 1.8 @ 45ml/hr since patient is on hemodialysis. This provides 1940 kcal and 87g protein. This would meet >90% of estimated calorie and protein needs of the patient. 2. Recommend Vitamin C supplement for wound healing. Monitor/Evaluate Goal: Have pt meet at least 75% of estimated needs Monitor: TF intake/tolerance, Labs, GI function F/U in 2-3 days as high risk
--- NOTE | 2018-08-16 14:20 | NUR ---
HEMODIALYSIS IS STOP AT THIS TIME BY HD FLORENTINO MILLER. 1300 ML WERE OUT PER HD FLORENTINO MILLER.
--- NOTE | 2018-08-16 14:20 | NUR ---
NOTED RAPID A-FIB THEN V-TACH. CODE BLUE IS CALLED (SEE CODE BLUE SHEET).
--- NOTE | 2018-08-16 14:46 | NUR ---
CODE BLUE IS TERMINATED AT THIS TIME PER DR YANEZ (SEE CODE BLUE SHEET). IS PRONOUNCED BY DR YANEZ.
--- NOTE | 2018-08-16 14:55 | NUR ---
GIVEN POST MORTEM CARE.
--- NOTE | 2018-08-16 15:10 | NUR ---
CALLED [facility] [employer] OPERATOR HELPER'S OFFICE AND GIVEN INFORMATION ABOUT THE OF THE PATIENT. SAKINA STATED THAT SOMEBODY FROM THE CUSTOM FEED MILL OPERATOR HELPER'S OFFICE WILL CALL BACK.
--- NOTE | 2018-08-16 15:15 | NUR ---
FAMILY MEMBERS ARE IN THE ROOM. GIVEN EMOTIONAL SUPPORT.
--- NOTE | 2018-08-16 15:27 | NUR ---
SHANTE FROM [facility] CALL BACK THE UNIT AT THIS TIME. GIVEN INFORMATION REGARDING THE OF THE PATIENT. SHANTE STATED THAT IT IS RAYMUNDO TO RELEASE THE BODY PER HOSPITAL PROTOCOL BASED ON THE INFORMATION OF THE PATIENT. OSTOMY NURSE LORI IS AWARE.
--- NOTE | 2018-08-16 16:00 | NUR ---
MORE FAMILY MEMBERS ARE IN THE ROOM. GIVEN EMOTIONAL SUPPORT.
--- NOTE | 2018-08-16 17:25 | NUR ---
STILL NO RESPONSE FROM THE CNC MILLING MACHINIST'S OFFICE. CALLED BACK AGAIN THE [facility] [employer]ING MACHINIST'S OFFICE AND SPEAK TO THE OFFICER ON DUTY. OFFICER ON DUTY STATED THAT THE SAKINA IS STILL WORKING ON IT AND SOMEBODY FROM THE CNC MILLING MACHINIST'S OFFICE WILL CALL BACK.
--- NOTE | 2018-08-16 17:32 | NUR ---
TALK TO [place] PATIENT INTAKE REPRESENTATIVE'S OFFICE OFFICER ODESSA MOE. GIVEN INFORMATION ABOUT THE PATIENT. OFFICER ODESSA MOE STATED THAT HE WILL CALL ME BACK.
--- NOTE | 2018-08-16 17:50 | NUR ---
AND FAMILY MEMBERS ARE IN THE ROOM. GIVEN EMOTIONAL SUPPORT.
--- NOTE | 2018-08-16 18:26 | NUR ---
[facility] RN CHEMICAL DEPENDENCY'S OFFICE OFFICER ODESSA MOE CALL BACK THE UNIT AT THIS TIME AND STATED THAT IT IS RAYMUNDO TO RELEASE THE BODY AND IT IS NOT A RN CHEMICAL DEPENDENCY'S CASE. CASE NUMBER IS [id number]. MANAGER R DFLORENTINO LARRY.
--- NOTE | 2018-08-16 18:36 | NUR ---
IV CATH ON LEFT CHEST, MID CHEST, AND RIGHT UPPER ARM ARE D/C AT THIS TIME. OCCLUSIVE DRESSINGS ARE THEN PLACED. ETT AND OGT ARE ALSO REMOVE AT THIS TIME. ORAL CARE GIVEN.
--- NOTE | 2018-08-16 21:30 | NUR ---
NOTIFIED PER FAMILY A MEMBER IS STILL COMING TO VISIT AND JUST ARRIVED. A BEDSIDE PRAYER WAS SAID. NOTIFIED PER FAMILY AVAILABLE TO TRANSFER. NOTIFIED SECURITY FOR JOVANY PICKUP. JOVANY PICKUP @ BEDSIDE.
== END 2018-08-16 22:00 | disposition expired | DRG 349 ==
LOC: ED 02:00 → IC 05:49 → EDBD 05:49 → IC 07:21
PROVIDERS: Emergency Medicine; Internal Medicine; ADMIT Family Medicine
PROC: 5A12012 Performance of Cardiac Output, Single, Manual (ICD-10-PCS; principal; 2018-08-10)
PROC: 0BH17EZ Insertion of Endotracheal Airway into Trachea, Via Natural or Artificial Opening (ICD-10-PCS; 2018-08-10)
PROC: 5A1955Z Respiratory Ventilation, Greater than 96 Consecutive Hours (ICD-10-PCS; 2018-08-10)
PROC: 5A1D70Z Performance of Urinary Filtration, Intermittent, Less than 6 Hours Per Day (ICD-10-PCS; 2018-08-11)
PROC: 30233N1 Transfusion of Nonautologous Red Blood Cells into Peripheral Vein, Percutaneous Approach (ICD-10-PCS; 2018-08-12)
PROC: 5A1D70Z Performance of Urinary Filtration, Intermittent, Less than 6 Hours Per Day (ICD-10-PCS; 2018-08-12)
PROC: 5A1D70Z Performance of Urinary Filtration, Intermittent, Less than 6 Hours Per Day (ICD-10-PCS; 2018-08-14)
PROC: 5A1D70Z Performance of Urinary Filtration, Intermittent, Less than 6 Hours Per Day (ICD-10-PCS; 2018-08-16)
DX: T87.43 Infection of amputation stump, right lower extremity (principal); I21.4 Non-ST elevation (NSTEMI) myocardial infarction; J96.01 Acute respiratory failure with hypoxia; I49.01 Ventricular fibrillation; E43 Unspecified severe protein-calorie malnutrition; A41.9 Sepsis, unspecified organism; R65.21 Severe sepsis with septic shock; R57.0 Cardiogenic shock; G93.41 Metabolic encephalopathy; J18.9 Pneumonia, unspecified organism; I13.2 Hypertensive heart and chronic kidney disease with heart failure and with stage 5 chronic kidney disease, or end stage renal disease; E11.51 Type 2 diabetes mellitus with diabetic peripheral angiopathy without gangrene; I50.43 Acute on chronic combined systolic (congestive) and diastolic (congestive) heart failure; D63.8 Anemia in other chronic diseases classified elsewhere; F41.9 Anxiety disorder, unspecified; Y83.8 Other surgical procedures as the cause of abnormal reaction of the patient, or of later complication, without mention of misadventure at the time of the procedure; I35.0 Nonrheumatic aortic (valve) stenosis; I25.5 Ischemic cardiomyopathy; E78.5 Hyperlipidemia, unspecified; N17.9 Acute kidney failure, unspecified; E83.42 Hypomagnesemia; N18.6 End stage renal disease; Z99.2 Dependence on renal dialysis; Z68.26 Body mass index [BMI] 26.0-26.9, adult; Z89.611 Acquired absence of right leg above knee; Z87.01 Personal history of pneumonia (recurrent); Z88.0 Allergy status to penicillin; Z88.1 Allergy status to other antibiotic agents; Z88.8 Allergy status to other drugs, medicaments and biological substances
CPT/HCPCS: 36600; 82962; 83880; A4628; B4164; G0378; J0171; J0282; J0770; J0885-EC; J1450; J1644; J2001; J2020; J2185 ×2; J2270; J2370; J3475; J3480; J3490; J7030; J7050; P9016; P9047; Q0092